=== PATIENT | female | born 1960 | race Caucasian/White ===

== ENCOUNTER → 2016-10-06 | Outpatient (CLI) | payer MEDICARE, MEDICAID ==
[~2016-10-06] VITALS: Ht 30.5 cm; Wt 0.5 kg
[~2016-10-06] MED LIST: MAGNESIUM OXIDE 400 MG TAB ONE; MAGNESIUM OXIDE 400 MG TAB PO ONE; POTASSIUM CHL 20 Meq TABLET PO ONE
[2016-10-06 13:25] VITALS: BP 124/69
[2016-10-06 15:45] VITALS: BP 132/64
== END | disposition home or self-care (01) ==
LOC: CHF HDHVI 13:45
PROVIDERS: ATTEND Internal Medicine Cardiovascular Disease
DX: I51.7 Cardiomegaly (principal); I70.0 Atherosclerosis of aorta
CPT/HCPCS: 71020; G0463

== ENCOUNTER → 2016-10-08 | Outpatient (CLI) | payer MEDICARE, MEDICAID | END | disposition home or self-care (01) | LOC: Rad HDHVI 15:08 | PROVIDERS: ATTEND Internal Medicine Cardiovascular Disease | DX: I27.2 Other secondary pulmonary hypertension (principal); R06.02 Shortness of breath | CPT/HCPCS: 93306 ==

== ENCOUNTER → 2016-10-15 | Outpatient (CLI) | payer MEDICARE, MEDICAID ==
[~2016-10-15] MED LIST changes: +ALBUTEROL SULF 2.5 MG/0.5ML(0.5%) NEB SOLN NEB ONE; +ALBUTEROL SULF 2.5 MG/0.5ML(0.5%) NEB SOLN ONE; +CYANOCOBALAMIN (B-12) 1000 MCG/1 ML VIAL IM ONE; +CYANOCOBALAMIN (B-12) 1000 MCG/1 ML VIAL ONE; +FUROSEMIDE 40 MG/4 ML VIAL IV ONE; +FUROSEMIDE 40 MG/4 ML VIAL ONE; -MAGNESIUM OXIDE 400 MG TAB ONE; -MAGNESIUM OXIDE 400 MG TAB PO ONE
[2016-10-15 14:05] VITALS: BP 123/78
[2016-10-15 14:50] VITALS: BP 131/75
[2016-10-15 16:32] LABS: Basophils # (auto) 0.1 uL; Basophils % (auto) 0.5 % (0.0-2.0); Eosinophils # (auto) 0 uL; Eosinophils % (auto) 0.3 % (0.0-7.0); Hematocrit 40.5 % (36.0-46.0); Hemoglobin 13.1 g/dL (12.2-16.2); Lymphocytes # (auto) 2.4 uL; Lymphocytes % (auto) 20.1 % (10.0-50.0); Mean Corpuscular Hemoglobin 27.1 pg (28.0-32.0); Mean Corpuscular Hgb Conc. 32.3 g/dL (32.0-36.0); Mean Corpuscular Volume 83.9 fL (80.0-100.0); Mean Platelet Volume 10.6 fL (7.4-10.4); Monocytes # (auto) 0.5 uL; Monocytes % (auto) 4.4 % (0.0-12.0); Neutrophils # (auto) 8.8 uL; Neutrophils % (auto) 74.7 % (37.0-80.0); Platelet Count (auto) 292 10^3/uL (140-450); White Blood Cell 11.8 10^3/uL (4.4-10.8)
[2016-10-15 16:39] LABS: BUN/Creatinine Ratio 18.3; Calcium 8.8 mg/dL (8.5-10.1); Magnesium 2.2 mg/dL (1.6-2.6); Potassium 3.9 mmol/L (3.5-5.1)
== END | disposition home or self-care (01) ==
LOC: CHF HDHVI 14:20
PROVIDERS: ATTEND Internal Medicine Cardiovascular Disease
DX: I10 Essential (primary) hypertension (principal); E11.9 Type 2 diabetes mellitus without complications; E83.40 Disorders of magnesium metabolism, unspecified; D64.9 Anemia, unspecified; E55.9 Vitamin D deficiency, unspecified
CPT/HCPCS: 36415; 80048; 82306; 83036; 83735; 85025; 85049; 94640; 96372; 96374; G0463

== ENCOUNTER → 2016-11-06 | Outpatient (CLI) | payer MEDICARE, MEDICAID ==
[2016-11-06 13:00] VITALS: BP 120/84
[2016-11-06] MEDS: POTASSIUM CHL 20 Meq TABLET PO ONE (13:00)
[2016-11-06] MEDS: CYANOCOBALAMIN (B-12) 1000 MCG/1 ML VIAL IM ONE (13:00)
[2016-11-06] MEDS: FUROSEMIDE 40 MG/4 ML VIAL IV ONE (13:00)
[2016-11-06 13:46] VITALS: BP 118/69
[2016-11-06] MEDS: POTASSIUM CHL 10 Meq TABLET PO ONE (13:47)
[2016-11-06] MEDS: FUROSEMIDE 40 MG/4 ML VIAL ONE (13:47)
[2016-11-06] MEDS: CYANOCOBALAMIN (B-12) 1000 MCG/1 ML VIAL ONE (13:48)
[2016-11-06 16:17] LABS: Basophils # (auto) 0 uL; Basophils % (auto) 0.7 % (0.0-2.0); DEFINITIVE VIEW TRANSMISSION; Eosinophils # (auto) 0.1 uL; Eosinophils % (auto) 1.4 % (0.0-7.0); Hematocrit 37.1 % (36.0-46.0); Hemoglobin 11.5 g/dL (12.2-16.2); Lymphocytes # (auto) 1.9 uL; Lymphocytes % (auto) 27.1 % (10.0-50.0); Mean Corpuscular Hemoglobin 26.1 pg (28.0-32.0); Mean Corpuscular Hgb Conc. 31.1 g/dL (32.0-36.0); Mean Platelet Volume 11.9 fL (7.4-10.4); Monocytes # (auto) 0.3 uL; Monocytes % (auto) 4.3 % (0.0-12.0); Neutrophils # (auto) 4.6 uL; Neutrophils % (auto) 66.5 % (37.0-80.0); Platelet Count (auto) 315 10^3/uL (140-450); Red Cell Distribution Width 16.1 % (11.6-16.0); SUSPECT VIEW TRANSMISSION
[2016-11-06 16:42] LABS: Albumin 3.4 g/dL (3.4-5.0); BUN/Creatinine Ratio 16.3; Calcium 8.4 mg/dL (8.5-10.1); Magnesium 2.2 mg/dL (1.6-2.6); Potassium 3.7 mmol/L (3.5-5.1)
[2016-11-06 16:57] LABS: Bilirubin, Total 0.2 mg/dL (0.2-1.0); Total Protein 6.6 g/dL (6.4-8.2)
== END | disposition home or self-care (01) ==
LOC: CHF HDHVI 12:56
PROVIDERS: ATTEND Internal Medicine Cardiovascular Disease
DX: I10 Essential (primary) hypertension (principal); D64.9 Anemia, unspecified; E83.40 Disorders of magnesium metabolism, unspecified
CPT/HCPCS: 36415; 80053; 83735; 85025; 93701; 96365; 96372; G0463

== ENCOUNTER → 2016-11-13 | Outpatient (CLI) | payer MEDICARE, MEDICAID ==
[2016-11-13 11:00] VITALS: BP 125/74
[2016-11-13 13:30] VITALS: BP 137/71
== END | disposition home or self-care (01) ==
LOC: Rad HDHVI 11:41
PROVIDERS: ATTEND Internal Medicine Cardiovascular Disease
DX: I27.0 Primary pulmonary hypertension (principal); M81.0 Age-related osteoporosis without current pathological fracture
CPT/HCPCS: 77078; 96372; G0463

== ENCOUNTER → 2017-01-07 | Outpatient (CLI) | payer MEDICARE, MEDICAID ==
[~2017-01-07] MED LIST changes: -ALBUTEROL SULF 2.5 MG/0.5ML(0.5%) NEB SOLN NEB ONE; -ALBUTEROL SULF 2.5 MG/0.5ML(0.5%) NEB SOLN ONE; -FUROSEMIDE 40 MG/4 ML VIAL IV ONE; -FUROSEMIDE 40 MG/4 ML VIAL ONE; -POTASSIUM CHL 20 Meq TABLET PO ONE
[2017-01-07 13:20] VITALS: BP 122/70
[2017-01-07 16:35] LABS: Basophils # (auto) 0 uL; Basophils % (auto) 0.6 % (0.0-2.0); Eosinophils # (auto) 0.1 uL; Eosinophils % (auto) 1.7 % (0.0-7.0); Hematocrit 37.3 % (36.0-46.0); Hemoglobin 12.3 g/dL (12.2-16.2); Lymphocytes % (auto) 27.7 % (10.0-50.0); Mean Corpuscular Hemoglobin 27.7 pg (28.0-32.0); Mean Corpuscular Hgb Conc. 33.1 g/dL (32.0-36.0); Mean Corpuscular Volume 83.7 fL (80.0-100.0); Mean Platelet Volume 11.2 fL (7.4-10.4); Monocytes # (auto) 0.3 uL; Neutrophils # (auto) 4.7 uL; Platelet Count (auto) 272 10^3/uL (140-450); Red Cell Distribution Width 16.7 % (11.6-16.0); White Blood Cell 7.2 10^3/uL (4.4-10.8)
[2017-01-07 16:47] LABS: BUN/Creatinine Ratio 14.5; Calcium 8.4 mg/dL (8.5-10.1); Potassium 3.4 mmol/L (3.5-5.1)
== END | disposition home or self-care (01) ==
LOC: CHF HDHVI 13:27
PROVIDERS: ATTEND Internal Medicine Cardiovascular Disease
DX: I10 Essential (primary) hypertension (principal); E11.9 Type 2 diabetes mellitus without complications; D64.9 Anemia, unspecified
CPT/HCPCS: 36415; 80048; 83036; 85025; 96372; G0463

== ENCOUNTER → 2017-02-10 | Outpatient (CLI) | payer MEDICARE, MEDICAID ==
[~2017-02-10] MED LIST changes: -CYANOCOBALAMIN (B-12) 1000 MCG/1 ML VIAL IM ONE
[2017-02-10 16:38] LABS: Potassium 3.4 mmol/L (3.5-5.1)
== END | disposition home or self-care (01) ==
LOC: CHF HDHVI 12:35
PROVIDERS: ATTEND Internal Medicine Cardiovascular Disease
DX: R94.4 Abnormal results of kidney function studies (principal); I10 Essential (primary) hypertension
CPT/HCPCS: 36415; 82565; 84132; 84520

== ENCOUNTER → 2017-03-18 | Outpatient (CLI) | payer MEDICARE, MEDICAID ==
[~2017-03-18] MED LIST changes: +CYANOCOBALAMIN (B-12) 1000 MCG/1 ML VIAL IM ONE; +POTASSIUM CHL 20 Meq TABLET PO ONE
[2017-03-18 12:35] VITALS: BP 116/68
[2017-03-18 13:40] VITALS: BP 108/66
[2017-03-18 16:27] LABS: Calcium 8.1 mg/dL (8.5-10.1); Magnesium 1.7 mg/dL (1.6-2.6); Potassium 3.4 mmol/L (3.5-5.1)
[2017-03-18 16:29] LABS: Basophils # (auto) 0 uL; Basophils % (auto) 0.7 % (0.0-2.0); CONDITION AutoValidated; Eosinophils # (auto) 0.1 uL; Hematocrit 35.4 % (36.0-46.0); Hemoglobin 11.8 g/dL (12.2-16.2); Lymphocytes # (auto) 1.7 uL; Lymphocytes % (auto) 27.4 % (10.0-50.0); Mean Corpuscular Hemoglobin 28.1 pg (28.0-32.0); Mean Corpuscular Hgb Conc. 33.4 g/dL (32.0-36.0); Mean Corpuscular Volume 84.2 fL (80.0-100.0); Monocytes # (auto) 0.3 uL; Monocytes % (auto) 4.3 % (0.0-12.0); Neutrophils # (auto) 4.1 uL; Neutrophils % (auto) 66.6 % (37.0-80.0); Platelet Count (auto) 248 10^3/uL (140-450); Red Cell Distribution Width 15.2 % (11.6-16.0); White Blood Cell 6.1 10^3/uL (4.4-10.8)
== END | disposition home or self-care (01) ==
LOC: CHF HDHVI 12:31
PROVIDERS: ATTEND Internal Medicine Cardiovascular Disease
DX: I10 Essential (primary) hypertension (principal); D64.9 Anemia, unspecified; E83.42 Hypomagnesemia
CPT/HCPCS: 36415; 80048; 83735; 85025; 96372; G0463

== ENCOUNTER → 2017-04-05 | Outpatient (CLI) | payer MEDICARE, MEDICAID ==
[~2017-04-05] MED LIST changes: -POTASSIUM CHL 20 Meq TABLET PO ONE
[2017-04-05 13:00] VITALS: BP 108/70
[2017-04-05 13:25] VITALS: BP 108/57
[2017-04-05 17:11] LABS: Basophils # (auto) 0 uL; Basophils % (auto) 0.6 % (0.0-2.0); CONDITION Y; Eosinophils # (auto) 0.1 uL; Eosinophils % (auto) 0.9 % (0.0-7.0); Hematocrit 37.8 % (36.0-46.0); Hemoglobin 12.7 g/dL (12.2-16.2); Lymphocytes # (auto) 1.6 uL; Lymphocytes % (auto) 25.6 % (10.0-50.0); Mean Corpuscular Hemoglobin 28.8 pg (28.0-32.0); Mean Corpuscular Hgb Conc. 33.6 g/dL (32.0-36.0); Mean Corpuscular Volume 85.5 fL (80.0-100.0); Mean Platelet Volume 11.5 fL (7.4-10.4); Monocytes # (auto) 0.2 uL; Monocytes % (auto) 3.5 % (0.0-12.0); Neutrophils # (auto) 4.3 uL; Neutrophils % (auto) 69.4 % (37.0-80.0); Platelet Count (auto) 265 10^3/uL (140-450); Red Cell Distribution Width 15.2 % (11.6-16.0); White Blood Cell 6.2 10^3/uL (4.4-10.8)
[2017-04-05 17:35] LABS: Albumin 3.7 g/dL (3.4-5.0); Alkaline Phosphatase 103 U/L (45-117); Anion Gap 11 (5-15); Aspartate Aminotransferase 12 U/L (15-37); BUN/Creatinine Ratio 20.6; Bilirubin, Direct < 0.1 mg/dL (0-0.2); Bilirubin, Total 0.3 mg/dL (0.2-1.0); Blood Urea Nitrogen 21 mg/dL (7-18); Calcium 8.7 mg/dL (8.5-10.1); Carbon Dioxide 26 mmol/L (21-32); Chloride 99 mmol/L (98-107); Cholesterol 214 mg/dL (< 200); GFR African American 72 mL/min; GFR Non-African American 59 mL/min; Glucose 264 mg/dL (74-106); HDL Cholesterol 41 mg/dL (40-59); LDL Cholesterol 142 mg/dL (< 100); Magnesium 2.1 mg/dL (1.6-2.6); Potassium 3.6 mmol/L (3.5-5.1); Sodium 136 mmol/L (136-145); Total Protein 6.9 g/dL (6.4-8.2); Triglycerides 203 mg/dL (< 150)
== END | disposition home or self-care (01) ==
LOC: CHF HDHVI 12:14
PROVIDERS: ATTEND Internal Medicine Cardiovascular Disease
DX: I10 Essential (primary) hypertension (principal); E11.9 Type 2 diabetes mellitus without complications; K21.9 Gastro-esophageal reflux disease without esophagitis; J45.909 Unspecified asthma, uncomplicated; E55.9 Vitamin D deficiency, unspecified; D64.9 Anemia, unspecified; R06.02 Shortness of breath
CPT/HCPCS: 36415; 80048; 80061; 80076; 82306; 83036; 83735; 85025; 96372; G0463; J3420

== ENCOUNTER → 2017-04-29 | Outpatient (CLI) | payer MEDICARE, MEDICAID ==
[2017-04-29 15:30] VITALS: BP 107/68
[2017-04-29 15:43] VITALS: BP 107/68
[2017-04-29 16:36] LABS: BUN/Creatinine Ratio 11.7; Calcium 8.5 mg/dL (8.5-10.1); Potassium 3.8 mmol/L (3.5-5.1)
[2017-04-29 16:37] LABS: Magnesium 2.2 mg/dL (1.6-2.6); Phosphorus 3.8 mg/dL (2.5-4.90)
== END | disposition home or self-care (01) ==
LOC: CHF HDHVI 14:37
PROVIDERS: ATTEND Internal Medicine Cardiovascular Disease
DX: I27.0 Primary pulmonary hypertension (principal); D64.9 Anemia, unspecified; E11.9 Type 2 diabetes mellitus without complications; B37.89 Other sites of candidiasis; E83.42 Hypomagnesemia; R89.9 Unspecified abnormal finding in specimens from other organs, systems and tissues
CPT/HCPCS: 36415; 80048; 83036; 83735; 84100; 87205; 96372; G0463; J3420

== ENCOUNTER → 2017-05-25 | Outpatient (CLI) | payer MEDICARE, MEDICAID | END | disposition home or self-care (01) | LOC: LAB 11:07 | PROVIDERS: ATTEND Internal Medicine Cardiovascular Disease | DX: E11.9 Type 2 diabetes mellitus without complications (principal) | CPT/HCPCS: 36415; 83036 ==

== ENCOUNTER → 2017-07-27 | Outpatient (CLI) | payer MEDICARE, MEDICAID ==
[2017-07-27 11:30] VITALS: BP 110/67
[2017-07-27 12:12] VITALS: BP 126/63
[2017-07-27 17:04] LABS: BUN/Creatinine Ratio 17.2; Calcium 8.7 mg/dL (8.5-10.1); Potassium 3.7 mmol/L (3.5-5.1)
== END | disposition home or self-care (01) ==
LOC: CHF HDHVI 11:37
PROVIDERS: ATTEND Internal Medicine Cardiovascular Disease
DX: I10 Essential (primary) hypertension (principal); E11.9 Type 2 diabetes mellitus without complications; E55.9 Vitamin D deficiency, unspecified
CPT/HCPCS: 36415; 80048; 82306; 83036; 83735; G0463

== ENCOUNTER → 2017-10-07 | Outpatient (CLI) | payer MEDICARE, MEDICAID ==
[~2017-10-07] VITALS: Ht 30.5 cm; Wt 0.5 kg
[~2017-10-07] MED LIST changes: +FUROSEMIDE 40 MG/4 ML VIAL IV ONE; +FUROSEMIDE 40 MG/4 ML VIAL ONE; +POTASSIUM CHL 10 Meq TABLET PO ONE; +POTASSIUM CHL 20 Meq TABLET PO ONE
[2017-10-07 10:55] VITALS: BP 127/70
[2017-10-07 12:25] VITALS: BP 105/69
[2017-10-07 16:44] LABS: Basophils # (auto) 0 uL; Basophils % (auto) 0.6 % (0.0-2.0); Eosinophils # (auto) 0.1 uL; Eosinophils % (auto) 1.3 % (0.0-7.0); Hematocrit 36.3 % (36.0-46.0); Lymphocytes # (auto) 1.6 uL; Lymphocytes % (auto) 22.6 % (10.0-50.0); Mean Corpuscular Hemoglobin 27.6 pg (28.0-32.0); Mean Corpuscular Hgb Conc. 32.9 g/dL (32.0-36.0); Mean Corpuscular Volume 83.7 fL (80.0-100.0); Monocytes # (auto) 0.3 uL; Monocytes % (auto) 4.2 % (0.0-12.0); Neutrophils # (auto) 5.1 uL; Neutrophils % (auto) 71.3 % (37.0-80.0); Nucleated Red Blood Cells % 0.4 %; Platelet Count (auto) 239 10^3/uL (140-450); Red Blood Cells 4.34 10^6/uL (4.0-5.20); Red Cell Distribution Width 16.1 % (11.8-14.3); White Blood Cell 7.2 10^3/uL (4.4-10.8)
[2017-10-07 16:52] LABS: BUN/Creatinine Ratio 13.5; Calcium 8.7 mg/dL (8.5-10.1); Magnesium 2.4 mg/dL (1.6-2.6); Potassium 3.8 mmol/L (3.5-5.1)
== END | disposition home or self-care (01) ==
LOC: CHF HDHVI 10:06
PROVIDERS: ATTEND Internal Medicine Cardiovascular Disease
DX: I10 Essential (primary) hypertension (principal); E11.9 Type 2 diabetes mellitus without complications; E83.42 Hypomagnesemia; D64.9 Anemia, unspecified; I27.21 Secondary pulmonary arterial hypertension; R53.83 Other fatigue; E87.70 Fluid overload, unspecified
CPT/HCPCS: 36415; 80048; 83036; 83735; 85025; 93701; 94618; 96372; 96374; G0463; J1940; J3420

== ENCOUNTER → 2017-10-29 | Outpatient (CLI) | payer MEDICARE, MEDICAID ==
[~2017-10-29] VITALS: Ht 30.5 cm; Wt 80.5 kg
[~2017-10-29] MED LIST changes: -FUROSEMIDE 40 MG/4 ML VIAL IV ONE; -FUROSEMIDE 40 MG/4 ML VIAL ONE; -POTASSIUM CHL 10 Meq TABLET PO ONE; -POTASSIUM CHL 20 Meq TABLET PO ONE
[2017-10-29 13:30] VITALS: BP 118/73
[2017-10-29 14:00] VITALS: BP 107/67
[2017-10-29 16:23] LABS: Basophils # (auto) 0 uL; Basophils % (auto) 0.5 % (0.0-2.0); Eosinophils # (auto) 0.1 uL; Eosinophils % (auto) 0.9 % (0.0-7.0); Hematocrit 37.6 % (36.0-46.0); Hemoglobin 12.5 g/dL (12.2-16.2); Lymphocytes # (auto) 1.8 uL; Lymphocytes % (auto) 21.2 % (10.0-50.0); Mean Corpuscular Hemoglobin 27.8 pg (28.0-32.0); Mean Corpuscular Hgb Conc. 33.2 g/dL (32.0-36.0); Mean Corpuscular Volume 83.9 fL (80.0-100.0); Monocytes # (auto) 0.5 uL; Monocytes % (auto) 5.6 % (0.0-12.0); Neutrophils % (auto) 71.8 % (37.0-80.0); Nucleated Red Blood Cells % 0.3 %; Platelet Count (auto) 240 10^3/uL (140-450); Red Blood Cells 4.49 10^6/uL (4.0-5.20); Red Cell Distribution Width 16.2 % (11.8-14.3); White Blood Cell 8.4 10^3/uL (4.4-10.8)
[2017-10-29 16:36] LABS: Albumin 3.6 g/dL (3.4-5.0); Calcium 8.9 mg/dL (8.5-10.1); Potassium 3.5 mmol/L (3.5-5.1)
[2017-10-29 16:38] LABS: BUN/Creatinine Ratio 18.1
[2017-10-29 16:40] LABS: Bilirubin, Total 0.3 mg/dL (0.2-1.0); Total Protein 6.8 g/dL (6.4-8.2)
== END | disposition home or self-care (01) ==
LOC: CHF HDHVI 13:31
PROVIDERS: ATTEND Internal Medicine Cardiovascular Disease
DX: I10 Essential (primary) hypertension (principal); D64.9 Anemia, unspecified; E83.42 Hypomagnesemia
CPT/HCPCS: 36415; 80053; 83735; 85025; 93701; 96372; G0463; J3420

== ENCOUNTER → 2017-12-16 | Outpatient (CLI) | payer MEDICARE, MEDICAID ==
[~2017-12-16] VITALS: Ht 33 cm; Wt 0.5 kg
[~2017-12-16] MED LIST changes: +FUROSEMIDE 20 MG/2 ML VIAL ONE; +FUROSEMIDE 40 MG/4 ML VIAL IV ONE; +FUROSEMIDE 40 MG/4 ML VIAL ONE; +POTASSIUM CHL 20 Meq TABLET PO ONE
[2017-12-16 14:10] VITALS: BP 109/72
[2017-12-16 14:40] VITALS: BP 113/64
[2017-12-16 15:58] LABS: Basophils # (auto) 0.1 uL; Eosinophils # (auto) 0.1 uL; Hematocrit 39.1 % (36.0-46.0); Hemoglobin 12.8 g/dL (12.2-16.2); Lymphocytes % (auto) 24.1 % (10.0-50.0); Mean Corpuscular Hemoglobin 28.1 pg (28.0-32.0); Mean Corpuscular Hgb Conc. 32.8 g/dL (32.0-36.0); Mean Corpuscular Volume 85.6 fL (80.0-100.0); Monocytes # (auto) 0.3 uL; Monocytes % (auto) 4.1 % (0.0-12.0); Neutrophils # (auto) 5.8 uL; Neutrophils % (auto) 69.8 % (37.0-80.0); Nucleated Red Blood Cells % 0.2 %; Platelet Count (auto) 278 10^3/uL (140-450); Red Blood Cells 4.57 10^6/uL (4.0-5.20); White Blood Cell 8.3 10^3/uL (4.4-10.8)
[2017-12-16 16:01] LABS: Albumin 3.7 g/dL (3.4-5.0); BUN/Creatinine Ratio 13.3; Calcium 8.9 mg/dL (8.5-10.1); Magnesium 1.8 mg/dL (1.6-2.6); Potassium 3.6 mmol/L (3.5-5.1)
[2017-12-16 16:04] LABS: Bilirubin, Total 0.3 mg/dL (0.2-1.0); Total Protein 7.3 g/dL (6.4-8.2)
== END | disposition home or self-care (01) ==
LOC: CHF HDHVI 14:23
PROVIDERS: ATTEND Internal Medicine Cardiovascular Disease
DX: I11.0 Hypertensive heart disease with heart failure (principal); I50.9 Heart failure, unspecified; E11.65 Type 2 diabetes mellitus with hyperglycemia; E55.9 Vitamin D deficiency, unspecified; D51.9 Vitamin B12 deficiency anemia, unspecified; E87.70 Fluid overload, unspecified; R53.83 Other fatigue; I27.21 Secondary pulmonary arterial hypertension
CPT/HCPCS: 36415; 80053; 82306; 82607; 83735; 85025; 93701; 96372; 96374; G0463; J1940; J3420

== ENCOUNTER → 2018-01-27 | Outpatient (CLI) | payer MEDICARE, MEDICAID ==
[~2018-01-27] MED LIST changes: -CYANOCOBALAMIN (B-12) 1000 MCG/1 ML VIAL IM ONE; -FUROSEMIDE 20 MG/2 ML VIAL ONE; -FUROSEMIDE 40 MG/4 ML VIAL IV ONE; -FUROSEMIDE 40 MG/4 ML VIAL ONE; +LEVOFLOXACIN 250 MG TAB ONE; +LEVOFLOXACIN 500 MG TAB ONE; +LEVOFLOXACIN 500 MG TAB PO ONE; -POTASSIUM CHL 20 Meq TABLET PO ONE
[2018-01-27 13:47] VITALS: BP 129/71
[2018-01-27 15:00] VITALS: BP 113/66
[2018-01-27 15:52] LABS: Basophils # (auto) 0.1 uL; Basophils % (auto) 0.8 % (0.0-2.0); Eosinophils # (auto) 0.1 uL; Eosinophils % (auto) 1.1 % (0.0-7.0); Hematocrit 35.6 % (36.0-46.0); Hemoglobin 11.9 g/dL (12.2-16.2); Lymphocytes # (auto) 1.9 uL; Mean Corpuscular Hemoglobin 28.2 pg (28.0-32.0); Mean Corpuscular Hgb Conc. 33.3 g/dL (32.0-36.0); Mean Corpuscular Volume 84.6 fL (80.0-100.0); Monocytes # (auto) 0.4 uL; Monocytes % (auto) 4.3 % (0.0-12.0); Neutrophils # (auto) 6.1 uL; Neutrophils % (auto) 71.8 % (37.0-80.0); Nucleated Red Blood Cells % 0.2 %; Platelet Count (auto) 252 10^3/uL (140-450); Red Blood Cells 4.21 10^6/uL (4.0-5.20); Red Cell Distribution Width 15.3 % (11.8-14.3); White Blood Cell 8.6 10^3/uL (4.4-10.8)
[2018-01-27 16:03] LABS: Albumin 3.5 g/dL (3.4-5.0); BUN/Creatinine Ratio 18.1; Calcium 8.5 mg/dL (8.5-10.1); Magnesium 1.6 mg/dL (1.6-2.6); Potassium 3.3 mmol/L (3.5-5.1)
[2018-01-27 16:06] LABS: Bilirubin, Total 0.2 mg/dL (0.2-1.0); Total Protein 6.7 g/dL (6.4-8.2)
== END | disposition home or self-care (01) ==
LOC: Rad HDHVI 13:57
PROVIDERS: ATTEND Internal Medicine Cardiovascular Disease
DX: I70.0 Atherosclerosis of aorta (principal); J98.11 Atelectasis; I27.29 Other secondary pulmonary hypertension; E11.65 Type 2 diabetes mellitus with hyperglycemia; E03.9 Hypothyroidism, unspecified; D64.9 Anemia, unspecified; I10 Essential (primary) hypertension
CPT/HCPCS: 36415; 71046; 80053; 83036; 83735; 84439; 84443; 85025; J3420

== ENCOUNTER → 2018-04-15 | Outpatient (CLI) | payer MEDICARE, MEDICAID ==
[~2018-04-15] VITALS: Ht 30.5 cm; Wt 0.5 kg
[~2018-04-15] MED LIST changes: -LEVOFLOXACIN 250 MG TAB ONE; -LEVOFLOXACIN 500 MG TAB ONE; -LEVOFLOXACIN 500 MG TAB PO ONE
[2018-04-15 14:00] VITALS: BP 110/57
[2018-04-15 15:40] VITALS: BP 112/60
[2018-04-15 15:55] LABS: Basophils # (auto) 0.1 uL; Basophils % (auto) 0.7 % (0.0-2.0); Eosinophils # (auto) 0.1 uL; Eosinophils % (auto) 0.9 % (0.0-7.0); Hematocrit 37.1 % (36.0-46.0); Hemoglobin 12.3 g/dL (12.2-16.2); Lymphocytes # (auto) 1.9 uL; Lymphocytes % (auto) 24.2 % (10.0-50.0); Mean Corpuscular Hemoglobin 28.1 pg (28.0-32.0); Mean Corpuscular Hgb Conc. 33.2 g/dL (32.0-36.0); Mean Corpuscular Volume 84.7 fL (80.0-100.0); Monocytes # (auto) 0.4 uL; Monocytes % (auto) 4.6 % (0.0-12.0); Neutrophils # (auto) 5.4 uL; Neutrophils % (auto) 69.6 % (37.0-80.0); Nucleated Red Blood Cells % 0.1 %; Platelet Count (auto) 244 10^3/uL (140-450); Red Blood Cells 4.38 10^6/uL (4.0-5.20); White Blood Cell 7.7 10^3/uL (4.4-10.8)
[2018-04-15 17:00] LABS: Albumin 3.3 g/dL (3.4-5.0); BUN/Creatinine Ratio 12.2; Bilirubin, Total 0.3 mg/dL (0.2-1.0); Magnesium 1.7 mg/dL (1.6-2.6); Potassium 3.5 mmol/L (3.5-5.1); Total Protein 6.6 g/dL (6.4-8.2)
== END | disposition home or self-care (01) ==
LOC: CHF HDHVI 14:23
PROVIDERS: ATTEND Internal Medicine Cardiovascular Disease
DX: E83.40 Disorders of magnesium metabolism, unspecified (principal); I10 Essential (primary) hypertension; D64.9 Anemia, unspecified; E11.9 Type 2 diabetes mellitus without complications; I27.21 Secondary pulmonary arterial hypertension; R06.09 Other forms of dyspnea; I25.10 Atherosclerotic heart disease of native coronary artery without angina pectoris
CPT/HCPCS: 36415; 80053; 83036; 83735; 85025; G0463; J3420; 93701

== ENCOUNTER → 2018-05-11 | Outpatient (CLI) | payer MEDICARE, MEDICAID ==
[~2018-05-11] VITALS: Ht 160 cm; Wt 80.7 kg
[~2018-05-11] MED LIST changes: +ADENOSINE 68 MG in GIVE UN-DILUTED 0 ML IV ONE; +ADENOSINE 90 MG/30 ML INJ IV ONE; +ALBUTEROL SULF 2.5 MG/0.5ML(0.5%) NEB SOLN ONE; -CYANOCOBALAMIN (B-12) 1000 MCG/1 ML VIAL ONE
== END | disposition home or self-care (01) ==
LOC: Rad HDHVI 13:41
PROVIDERS: ATTEND Internal Medicine Cardiovascular Disease
DX: E11.22 Type 2 diabetes mellitus with diabetic chronic kidney disease (principal); N18.3 Chronic kidney disease, stage 3 (moderate); E11.40 Type 2 diabetes mellitus with diabetic neuropathy, unspecified; E11.65 Type 2 diabetes mellitus with hyperglycemia; E70.0 Classical phenylketonuria; R00.2 Palpitations
CPT/HCPCS: 78452; 93005; 96374; 96375; A9500; J0153

== ENCOUNTER → 2018-05-16 | Outpatient (CLI) | payer MEDICARE, MEDICAID | END | disposition home or self-care (01) | LOC: Rad HDHVI 13:09 | PROVIDERS: ATTEND Internal Medicine Cardiovascular Disease | DX: I42.0 Dilated cardiomyopathy (principal); I73.9 Peripheral vascular disease, unspecified; I12.9 Hypertensive chronic kidney disease with stage 1 through stage 4 chronic kidney disease, or unspecified chronic kidney disease; N18.3 Chronic kidney disease, stage 3 (moderate) | CPT/HCPCS: 93306 ==

== ENCOUNTER → 2018-06-01 | Outpatient (CLI) | payer MEDICARE, MEDICAID ==
[2018-06-01 15:10] VITALS: BP 122/72
[2018-06-01 16:10] VITALS: BP 102/72
== END | disposition home or self-care (01) ==
LOC: Rad HDHVI 15:38
PROVIDERS: ATTEND Internal Medicine Cardiovascular Disease
DX: J44.9 Chronic obstructive pulmonary disease, unspecified (principal); I27.21 Secondary pulmonary arterial hypertension; I11.0 Hypertensive heart disease with heart failure; I50.9 Heart failure, unspecified; I25.10 Atherosclerotic heart disease of native coronary artery without angina pectoris; E11.9 Type 2 diabetes mellitus without complications
CPT/HCPCS: 93005; 93701; G0463

== ENCOUNTER → 2018-07-15 | Outpatient (CLI) | payer MEDICARE, MEDICAID ==
[2018-07-15 16:03] LABS: Basophils # (auto) 0 uL; Basophils % (auto) 0.6 % (0.0-2.0); Eosinophils # (auto) 0.1 uL; Hematocrit 36.9 % (36.0-46.0); Hemoglobin 12.3 g/dL (12.2-16.2); Lymphocytes # (auto) 1.6 uL; Lymphocytes % (auto) 22.7 % (10.0-50.0); Mean Corpuscular Hemoglobin 28.4 pg (28.0-32.0); Mean Corpuscular Hgb Conc. 33.3 g/dL (32.0-36.0); Mean Corpuscular Volume 85.2 fL (80.0-100.0); Monocytes # (auto) 0.3 uL; Monocytes % (auto) 4.1 % (0.0-12.0); Neutrophils # (auto) 5.1 uL; Neutrophils % (auto) 71.6 % (37.0-80.0); Nucleated Red Blood Cells % 0.1 %; Platelet Count (auto) 244 10^3/uL (140-450); Red Blood Cells 4.33 10^6/uL (4.0-5.20); Red Cell Distribution Width 15.6 % (11.8-14.3); White Blood Cell 7.2 10^3/uL (4.4-10.8)
[2018-07-15 16:10] LABS: Potassium 3.3 mmol/L (3.5-5.1)
[2018-07-15 16:11] LABS: Albumin 3.4 g/dL (3.4-5.0); BUN/Creatinine Ratio 10.6; Calcium 7.5 mg/dL (8.5-10.1); Magnesium 1.6 mg/dL (1.6-2.6)
[2018-07-15 16:28] LABS: Bilirubin, Total 0.3 mg/dL (0.2-1.0); Total Protein 6.8 g/dL (6.4-8.2)
== END | disposition home or self-care (01) ==
LOC: LAB 13:58
PROVIDERS: ATTEND Internal Medicine Cardiovascular Disease
DX: D64.9 Anemia, unspecified (principal); I10 Essential (primary) hypertension; E11.9 Type 2 diabetes mellitus without complications; E83.40 Disorders of magnesium metabolism, unspecified
CPT/HCPCS: 36415; 80053; 83036; 83735; 85025

== ENCOUNTER → 2018-08-03 | Outpatient (CLI) | payer MEDICARE, MEDICAID ==
[~2018-08-03] VITALS: Ht 30.5 cm; Wt 80.9 kg
[~2018-08-03] MED LIST changes: -ADENOSINE 68 MG in GIVE UN-DILUTED 0 ML IV ONE; -ADENOSINE 90 MG/30 ML INJ IV ONE; -ALBUTEROL SULF 2.5 MG/0.5ML(0.5%) NEB SOLN ONE; +CYANOCOBALAMIN (B-12) 1000 MCG/1 ML VIAL IM ONE; +CYANOCOBALAMIN (B-12) 1000 MCG/1 ML VIAL ONE; +POTASSIUM CHL 10 Meq TABLET PO ONE; +POTASSIUM CHL 20 Meq TABLET PO ONE
[2018-08-03 12:00] VITALS: BP 109/65
[2018-08-03 13:00] VITALS: BP 109/65
== END | disposition home or self-care (01) ==
LOC: CHF HDHVI 12:06
PROVIDERS: ATTEND Internal Medicine Cardiovascular Disease
DX: D51.9 Vitamin B12 deficiency anemia, unspecified (principal); I27.21 Secondary pulmonary arterial hypertension; J44.9 Chronic obstructive pulmonary disease, unspecified; I13.0 Hypertensive heart and chronic kidney disease with heart failure and stage 1 through stage 4 chronic kidney disease, or unspecified chronic kidney disease; E11.22 Type 2 diabetes mellitus with diabetic chronic kidney disease; E11.40 Type 2 diabetes mellitus with diabetic neuropathy, unspecified; E11.51 Type 2 diabetes mellitus with diabetic peripheral angiopathy without gangrene; N18.3 Chronic kidney disease, stage 3 (moderate); I50.9 Heart failure, unspecified; I25.10 Atherosclerotic heart disease of native coronary artery without angina pectoris; I42.0 Dilated cardiomyopathy
CPT/HCPCS: 82962; 93701; 96372; G0463; J3420

== ENCOUNTER → 2018-10-27 | Outpatient (CLI) | payer MEDICARE, MEDICAID ==
[~2018-10-27] MED LIST changes: -POTASSIUM CHL 10 Meq TABLET PO ONE; -POTASSIUM CHL 20 Meq TABLET PO ONE
[2018-10-27 13:45] VITALS: BP 118/75
--- NOTE | 2018-10-27 13:45 | NUR ---
CHF PT TO CHF CLINIC FOR MD RUSHING ORDERED LABS, CARDIODYNAMICS, 6MW AND VIT B 12 INJECTION FOR PAH REEVAL. PT CONTINUES TO SMOKE. STATES COUGH STILL HERE EVEN AFTER A DOSE OF STEROIDS THAT ENDED LAST WEEK. SMOKING CESSATION TAUGHT . PT STATED "THAT MAKES ME ANGRY , I DON'T WANT TO TALK ABOUT IT " PT HAS FOLLOW UP WITH DR. RUSHING NEXT WEEK.
[2018-10-27 14:45] VITALS: BP 112/71
--- NOTE | 2018-10-27 14:45 | NUR ---
CHF Discharge Instructions See e-MAR for any mediations given with this visit. VIT B 12 1000MCG IM R DELTOID. Patient education given on disease process. Patient verbalized understanding. Previous labs reviewed. Patient discharged in stable condition with after care instructions and follow up appointment.
[2018-10-27 16:32] LABS: Basophils # (auto) 0.1 uL; Basophils % (auto) 0.7 % (0.0-2.0); Eosinophils # (auto) 0.1 uL; Eosinophils % (auto) 0.9 % (0.0-7.0); Hematocrit 37.8 % (36.0-46.0); Hemoglobin 12.5 g/dL (12.2-16.2); Lymphocytes # (auto) 1.9 uL; Lymphocytes % (auto) 23.1 % (10.0-50.0); Mean Corpuscular Hemoglobin 27.5 pg (28.0-32.0); Mean Corpuscular Volume 83.3 fL (80.0-100.0); Monocytes # (auto) 0.4 uL; Monocytes % (auto) 4.4 % (0.0-12.0); Neutrophils # (auto) 5.8 uL; Neutrophils % (auto) 70.9 % (37.0-80.0); Nucleated Red Blood Cells % 0.1 %; Platelet Count (auto) 250 10^3/uL (140-450); Red Blood Cells 4.54 10^6/uL (4.0-5.20); Red Cell Distribution Width 15.5 % (11.8-14.3); White Blood Cell 8.2 10^3/uL (4.4-10.8)
[2018-10-27 16:45] LABS: Anion Gap 7 (5-15); BUN/Creatinine Ratio 13.1; Blood Urea Nitrogen 14 mg/dL (7-18); Calcium 8.5 mg/dL (8.5-10.1); Carbon Dioxide 27 mmol/L (21-32); Chloride 104 mmol/L (98-107); GFR Non-African American 56 mL/min; Glucose 184 mg/dL (74-106); Magnesium 1.6 mg/dL (1.6-2.6); Potassium 3.7 mmol/L (3.5-5.1); Sodium 138 mmol/L (136-145)
[2018-10-27 16:54] LABS: GFR African American > 60 mL/min
== END | disposition home or self-care (01) ==
LOC: CHF HDHVI 13:49
PROVIDERS: ATTEND Internal Medicine Cardiovascular Disease
DX: I27.21 Secondary pulmonary arterial hypertension (principal); I25.10 Atherosclerotic heart disease of native coronary artery without angina pectoris; J44.9 Chronic obstructive pulmonary disease, unspecified; D64.9 Anemia, unspecified; E55.9 Vitamin D deficiency, unspecified; I13.0 Hypertensive heart and chronic kidney disease with heart failure and stage 1 through stage 4 chronic kidney disease, or unspecified chronic kidney disease; E11.22 Type 2 diabetes mellitus with diabetic chronic kidney disease; N18.3 Chronic kidney disease, stage 3 (moderate); I50.9 Heart failure, unspecified; I42.9 Cardiomyopathy, unspecified; I73.9 Peripheral vascular disease, unspecified; I70.0 Atherosclerosis of aorta; E11.40 Type 2 diabetes mellitus with diabetic neuropathy, unspecified; E11.51 Type 2 diabetes mellitus with diabetic peripheral angiopathy without gangrene; E03.9 Hypothyroidism, unspecified; E78.00 Pure hypercholesterolemia, unspecified; K21.9 Gastro-esophageal reflux disease without esophagitis; M81.0 Age-related osteoporosis without current pathological fracture; Z79.899 Other long term (current) drug therapy
CPT/HCPCS: 36415; 80048; 82306; 83036; 83735; 85025; 93701; 94618; 96372; G0463; J3420

== ENCOUNTER → 2019-01-31 | Outpatient (CLI) | payer MEDICARE, MEDICAID ==
[~2019-01-31] MED LIST changes: -CYANOCOBALAMIN (B-12) 1000 MCG/1 ML VIAL IM ONE; +CYANOCOBALAMIN (B-12) 1000 MCG/1 ML VIAL SUBCUT ONE
--- NOTE | 2019-01-31 14:15 | NUR ---
IN TO CLINIC FOR PAH FOLLOWUP. NOTED TO HAVE DYSPNEA WITH ANY ACTIVITY, IMPROVED AT REST. VS WNL. PT REPORT RIGHT LEG PAIN EXTENDING FROM HIP TO RIGHT KNEE, EXACERBATED BY ACTIVITY. S/P FALL. LABS DRAWN AND SENT. XRAYS DONE FOR RIGHT LEG AND RIGHT HIP. TOLERATED WELL. CARDIODYNAMICS AND 6 MWT DONE AND REVIEWED. Discharge Instructions See e-MAR for any mediations given with this visit. Patient education given on disease process. Patient verbalized understanding. Previous labs reviewed. Patient discharged in stable condition with after care instructions MEDICATION ADMINISTRATION VIT B12 1000 MCG IM 1412 TO LEFT DELTOID
[2019-01-31 16:11] LABS: Basophils # (auto) 0.1 uL; Basophils % (auto) 0.7 % (0.0-2.0); Eosinophils # (auto) 0.1 uL; Eosinophils % (auto) 0.7 % (0.0-7.0); Hematocrit 37.5 % (36.0-46.0); Hemoglobin 12.3 g/dL (12.2-16.2); Lymphocytes % (auto) 25.9 % (10.0-50.0); Mean Corpuscular Hemoglobin 27.2 pg (28.0-32.0); Mean Corpuscular Hgb Conc. 32.7 g/dL (32.0-36.0); Mean Corpuscular Volume 83.1 fL (80.0-100.0); Monocytes # (auto) 0.3 uL; Neutrophils # (auto) 5.3 uL; Neutrophils % (auto) 68.7 % (37.0-80.0); Nucleated Red Blood Cells % 0.2 %; Platelet Count (auto) 259 10^3/uL (140-450); Red Blood Cells 4.52 10^6/uL (4.0-5.20); White Blood Cell 7.7 10^3/uL (4.4-10.8)
[2019-01-31 16:28] LABS: Potassium 3.7 mmol/L (3.5-5.1)
[2019-01-31 16:38] LABS: Albumin 3.5 g/dL (3.4-5.0); BUN/Creatinine Ratio 13.3; Bilirubin, Total 0.3 mg/dL (0.2-1.0); Calcium 8.5 mg/dL (8.5-10.1); Magnesium 1.6 mg/dL (1.6-2.6); Total Protein 6.8 g/dL (6.4-8.2)
== END | disposition home or self-care (01) ==
LOC: CHF HDHVI 13:03
PROVIDERS: ATTEND Internal Medicine Cardiovascular Disease
DX: M16.0 Bilateral primary osteoarthritis of hip (principal); M17.11 Unilateral primary osteoarthritis, right knee; D64.9 Anemia, unspecified; D51.9 Vitamin B12 deficiency anemia, unspecified; I10 Essential (primary) hypertension; E11.65 Type 2 diabetes mellitus with hyperglycemia; E83.40 Disorders of magnesium metabolism, unspecified; Z91.81 History of falling
CPT/HCPCS: 36415; 73502; 73552; 73562; 80053; 82607; 83036; 83735; 85025; 93701; 94618; 96372; G0463; J3420

== ENCOUNTER → 2019-04-28 | Outpatient (CLI) | payer MEDICARE, MEDICAID ==
[~2019-04-28] MED LIST changes: +CYANOCOBALAMIN (B-12) 1000 MCG/1 ML VIAL IM ONE; -CYANOCOBALAMIN (B-12) 1000 MCG/1 ML VIAL SUBCUT ONE
[2019-04-28 14:40] VITALS: BP 147/63
--- NOTE | 2019-04-28 14:42 | NUR ---
CHF FOLLOWUP PAH. PT REPORTS FATIGUE AND SOB WITH ACTIVITY. CARDIODYNAMICS AND 6 MWT DONE AND REVIEWED. FOLLOWUP ON WEDNESDAY FOR ECHOCARDIOGRAM ON 05/01/19. MEDICATION ADMINISTRATION VIT B12 1000 MCG IM TO LEFT DELTOID AT 1442
[2019-04-28 15:40] VITALS: BP 148/64
[2019-04-28 16:17] LABS: Basophils # (auto) 0.1 uL; Basophils % (auto) 0.7 % (0.0-2.0); Eosinophils # (auto) 0.1 uL; Eosinophils % (auto) 1.2 % (0.0-7.0); Hematocrit 33.3 % (36.0-46.0); Hemoglobin 11.3 g/dL (12.2-16.2); Lymphocytes # (auto) 1.9 uL; Lymphocytes % (auto) 21.4 % (10.0-50.0); Mean Corpuscular Hemoglobin 28.5 pg (28.0-32.0); Mean Corpuscular Hgb Conc. 33.9 g/dL (32.0-36.0); Monocytes # (auto) 0.3 uL; Monocytes % (auto) 3.5 % (0.0-12.0); Neutrophils # (auto) 6.4 uL; Neutrophils % (auto) 73.2 % (37.0-80.0); Platelet Count (auto) 269 10^3/uL (140-450); Red Blood Cells 3.96 10^6/uL (4.0-5.20); Red Cell Distribution Width 16.1 % (11.8-14.3); White Blood Cell 8.7 10^3/uL (4.4-10.8)
[2019-04-28 16:18] LABS: Albumin 3.2 g/dL (3.4-5.0); Calcium 7.2 mg/dL (8.5-10.1)
[2019-04-28 16:22] LABS: BUN/Creatinine Ratio 12.3; Bilirubin, Total 0.3 mg/dL (0.2-1.0); Total Protein 6.4 g/dL (6.4-8.2)
== END | disposition home or self-care (01) ==
LOC: CHF HDHVI 13:58
PROVIDERS: ATTEND Internal Medicine Cardiovascular Disease
DX: I27.21 Secondary pulmonary arterial hypertension (principal); I25.10 Atherosclerotic heart disease of native coronary artery without angina pectoris; D51.9 Vitamin B12 deficiency anemia, unspecified; E11.40 Type 2 diabetes mellitus with diabetic neuropathy, unspecified; K90.9 Intestinal malabsorption, unspecified; E83.40 Disorders of magnesium metabolism, unspecified; R53.83 Other fatigue; R06.00 Dyspnea, unspecified; E78.00 Pure hypercholesterolemia, unspecified
CPT/HCPCS: 36415; 80053; 82306; 82607; 83036; 83735; 85025; 93701; 94618; 96372; G0463; J3420

== ENCOUNTER → 2019-05-01 | Outpatient (CLI) | payer MEDICARE, MEDICAID ==
[~2019-05-01] MED LIST changes: -CYANOCOBALAMIN (B-12) 1000 MCG/1 ML VIAL IM ONE; -CYANOCOBALAMIN (B-12) 1000 MCG/1 ML VIAL ONE; +MAGNESIUM OXIDE 400 MG TAB ONE; +MAGNESIUM OXIDE 400 MG TAB PO ONE; +MAGNESIUM OXIDE 400 MG TAB PO SCH
[2019-05-01 13:00] VITALS: BP 99/60
--- NOTE | 2019-05-01 13:50 | NUR ---
IN FOR PAH FOLLOWUP FOR LAB RESULTS. LAB RESULTS REVIEWED AND PT VERBALIZED UNDERSTANDING. GAVE WRITTEN AND VERBAL EDUCATION REGARDING DIABETES MANAGEMENT AND VITAMIN D LEVEL AND ELECTROLYTE REPLACEMENT. DISCHARGED IN NO DISTRESS TO HAVE ECHO DONE.
[2019-05-01 16:09] LABS: Cholesterol 208 mg/dL (< 200)
[2019-05-01 16:13] LABS: HDL Cholesterol 45 mg/dL (40-59); LDL Cholesterol 140 mg/dL (< 100); Triglycerides 170 mg/dL (< 150)
== END | disposition home or self-care (01) ==
LOC: Rad HDHVI 13:27
PROVIDERS: ATTEND Internal Medicine Cardiovascular Disease
DX: I31.3 Pericardial effusion (noninflammatory) (principal); E78.5 Hyperlipidemia, unspecified; R06.02 Shortness of breath; I27.0 Primary pulmonary hypertension; R07.89 Other chest pain; E11.9 Type 2 diabetes mellitus without complications; E83.42 Hypomagnesemia
CPT/HCPCS: 36415; 71046; 80061; 93306; G0463

== ENCOUNTER → 2019-08-04 | Outpatient (CLI) | payer MEDICARE, MEDICAID ==
[~2019-08-04] VITALS: Ht 33 cm; Wt 79.9 kg
[~2019-08-04] MED LIST changes: +CYANOCOBALAMIN (B-12) 1000 MCG/1 ML VIAL IM ONE; +CYANOCOBALAMIN (B-12) 1000 MCG/1 ML VIAL ONE; -MAGNESIUM OXIDE 400 MG TAB PO SCH; +POTASSIUM CHL 10 Meq TABLET PO ONE
[2019-08-04 13:15] VITALS: BP 115/71
[2019-08-04 14:10] VITALS: BP 122/64
--- NOTE | 2019-08-04 14:10 | NUR ---
CHF Clinic Discharge Instructions See e-MAR for any mediations given with this visit. Patient education given on disease process. Patient verbalized understanding. Previous labs reviewed. Patient discharged in stable condition with after care instructions and follow up appointment. Note Cardiodynamics performed by Mirian MOSCOSO and reviewed with patient by Samantha TRIPLETT. 6MWT patient declined 60 meters Potassium PO admin by Samantha TRIPLETT. Mag Ox PO admin by Samantha TRIPLETT. B12 IM L deltoid admin by Betsy MOSCOSO.
[2019-08-04 15:51] LABS: Basophils # (auto) 0 uL; Basophils % (auto) 0.6 % (0.0-2.0); Eosinophils # (auto) 0.1 uL; Hematocrit 38.2 % (36.0-46.0); Hemoglobin 12.8 g/dL (12.2-16.2); Lymphocytes # (auto) 1.7 uL; Lymphocytes % (auto) 22.7 % (10.0-50.0); Mean Corpuscular Hgb Conc. 33.7 g/dL (32.0-36.0); Mean Corpuscular Volume 83.1 fL (80.0-100.0); Monocytes # (auto) 0.3 uL; Monocytes % (auto) 3.4 % (0.0-12.0); Neutrophils # (auto) 5.5 uL; Neutrophils % (auto) 72.3 % (37.0-80.0); Platelet Count (auto) 293 10^3/uL (140-450); Red Blood Cells 4.59 10^6/uL (4.0-5.20); Red Cell Distribution Width 15.8 % (11.8-14.3); White Blood Cell 7.6 10^3/uL (4.4-10.8)
[2019-08-04 15:59] LABS: Albumin 3.6 g/dL (3.4-5.0); Calcium 8.4 mg/dL (8.5-10.1); Magnesium 1.7 mg/dL (1.6-2.6); Potassium 3.9 mmol/L (3.5-5.1)
[2019-08-04 16:04] LABS: BUN/Creatinine Ratio 16.5; Bilirubin, Total 0.5 mg/dL (0.2-1.0); Total Protein 7.3 g/dL (6.4-8.2)
== END | disposition home or self-care (01) ==
LOC: CHF HDHVI 13:22
PROVIDERS: ATTEND Internal Medicine Cardiovascular Disease
DX: I27.21 Secondary pulmonary arterial hypertension (principal); E11.65 Type 2 diabetes mellitus with hyperglycemia; D64.9 Anemia, unspecified; E83.40 Disorders of magnesium metabolism, unspecified; E83.42 Hypomagnesemia; E87.6 Hypokalemia; R53.83 Other fatigue; R06.02 Shortness of breath
CPT/HCPCS: 36415; 80053; 83036; 83735; 85025; 93701; 94618; 96372; G0463; J3420

== ENCOUNTER → 2019-09-20 | Outpatient (CLI) | payer MEDICARE, MEDICAID ==
[2019-09-20 14:41] VITALS: BP 109/68
[2019-09-20 15:00] VITALS: BP 109/68
--- NOTE | 2019-09-20 15:00 | NUR ---
Discharge Instructions See e-MAR for any mediations given with this visit. Patient education given on disease process. Patient verbalized understanding. Previous labs reviewed. Patient discharged in stable condition with after care instructions and follow up appointment. LABS DRAWN CMP,BNP,MG CARDIODYNAMICS COMPLETED BY JEVON TRIPLETT REVIEWED WITH STEPHEN TRIPLETT PT SHOWED IMPROVEMENT CURRENTLY ON ADEMPAS 2.5 MG TID OPSUMIT 10 MG Q DAY
[2019-09-20 16:14] LABS: Albumin 3.5 g/dL (3.4-5.0); Calcium 8.3 mg/dL (8.5-10.1); Magnesium 1.4 mg/dL (1.6-2.6); Potassium 3.7 mmol/L (3.5-5.1)
[2019-09-20 16:16] LABS: Bilirubin, Total 0.4 mg/dL (0.2-1.0); Total Protein 6.9 g/dL (6.4-8.2)
== END | disposition home or self-care (01) ==
LOC: CHF HDHVI 15:06
PROVIDERS: ATTEND Internal Medicine Cardiovascular Disease
DX: I50.9 Heart failure, unspecified (principal)
CPT/HCPCS: 36415; 80053; 83735; 83880; 93701; G0463

== ENCOUNTER → 2019-12-05 | Outpatient (CLI) | payer MEDICARE, MEDICAID ==
[~2019-12-05] MED LIST changes: -POTASSIUM CHL 10 Meq TABLET PO ONE
[2019-12-05 12:47] VITALS: BP 118/69
--- NOTE | 2019-12-05 12:47 | NUR ---
CHF PT ARRIVED TO THE CHF CLINIC FOR MONTHLY PAH FOLLOW UP HAS NOT BEEN SEEN HERE SINCE 09/20/2020. A/O X4 VSS. PT O2 SATS 93% RA. PT COMPLAINS OF ACHES AND CRAMPING IN HER HANDS AND FEET.
[2019-12-05 13:54] LABS: Basophils # (auto) 0.1 10 ^3/uL (0-0.2); Basophils % (auto) 0.7 % (0.0-2.0); Eosinophils # (auto) 0.1 10 ^3/uL (0-0.8); Hematocrit 34.4 % (36.0-46.0); Hemoglobin 11.2 g/dL (12.2-16.2); Lymphocytes # (auto) 1.4 10 ^3/uL (0.4-5.4); Lymphocytes % (auto) 18.7 % (10.0-50.0); Mean Corpuscular Hemoglobin 27.2 pg (28.0-32.0); Mean Corpuscular Hgb Conc. 32.7 g/dL (32.0-36.0); Mean Corpuscular Volume 83.1 fL (80.0-100.0); Monocytes # (auto) 0.3 10 ^3/uL (0-1.3); Monocytes % (auto) 3.7 % (0.0-12.0); Neutrophils # (auto) 5.7 10 ^3/uL (1.6-8.6); Neutrophils % (auto) 75.9 % (37.0-80.0); Platelet Count (auto) 250 10^3/uL (140-450); Red Blood Cells 4.14 10^6/uL (4.0-5.20); Red Cell Distribution Width 15.6 % (11.8-14.3); White Blood Cell 7.5 10^3/uL (4.4-10.8)
--- NOTE | 2019-12-05 14:03 | NUR ---
PT WAS ASSISTED BY MARITA MOSCOSO TO DO A 6MWT. COMPLETED A TOTAL OF 240 METERS NO CHANGE TO METERS WALKED SINCE LAST 6MWT.
[2019-12-05 14:23] VITALS: BP 111/63
--- NOTE | 2019-12-05 14:23 | NUR ---
Discharge Instructions See e-MAR for any mediations given with this visit. Patient education given on disease process. Patient verbalized understanding. Previous labs reviewed. Patient discharged in stable condition with after care instructions and follow up appointment IN 2 WEEKS NOTE CARDIODYNAMICS BY MARITA MOSCOSO REVIEWED BY SHANTEL TRIPLETT 6MWT BY MARITA MOSCOSO 240 METERS REMAINED THE SAME PREVIOUS TEST VIT B12 R DELTOID IM ADMIN BY SIMON TRIPLETT MG OX PO
[2019-12-05 14:26] LABS: Albumin 3.3 g/dL (3.4-5.0); Calcium 6.2 mg/dL (8.5-10.1); Potassium 4.2 mmol/L (3.5-5.1)
[2019-12-05 14:29] LABS: BUN/Creatinine Ratio 14.4; Bilirubin, Total 0.3 mg/dL (0.2-1.0); Total Protein 6.8 g/dL (6.4-8.2)
[2019-12-05 14:32] LABS: Magnesium 0.7 mg/dL (1.6-2.6)
--- NOTE | 2019-12-05 14:46 | NUR ---
MAGNESIUM LEVEL PT STAT MAGNESIUM CAME BACK AT 0.7. PT CALLED TO COME BACK IN IMMEDIATELY FOR ASSESSMENT AND TX. PT REFUSED STATED SHE WILL COME BACK AFTER HER SKIN APPOINTMENT IN AM. MAGNESIUM OXIDE 800MG ALREADY GIVEN IN THE CLINIC.
== END | disposition home or self-care (01) ==
LOC: CHF HDHVI 13:11
PROVIDERS: ATTEND Internal Medicine Cardiovascular Disease
DX: I27.21 Secondary pulmonary arterial hypertension (principal); R53.83 Other fatigue; R06.02 Shortness of breath; E83.42 Hypomagnesemia; D64.9 Anemia, unspecified; K90.9 Intestinal malabsorption, unspecified; E11.9 Type 2 diabetes mellitus without complications; Z79.899 Other long term (current) drug therapy
CPT/HCPCS: 36415; 80053; 82306; 83036; 83735; 85025; 93701; 94618; 96372; G0463; J3420

== ENCOUNTER → 2019-12-06 | Outpatient (CLI) | payer MEDICARE, MEDICAID ==
[~2019-12-06] MED LIST changes: -CYANOCOBALAMIN (B-12) 1000 MCG/1 ML VIAL IM ONE; -CYANOCOBALAMIN (B-12) 1000 MCG/1 ML VIAL ONE; +MAGNESIUM SULFATE 1GM/100ML 100 ML IV ONE; +MAGNESIUM SULFATE 1GM/100ML 200 ML IV ONE
[2019-12-06 12:30] VITALS: BP 101/67
--- NOTE | 2019-12-06 12:30 | NUR ---
CHF PT ARRIVED TO THE CHF CLINIC FOR TREATMENT FOLLOWING LAB RESULTS FROM 12/05/19. VERBAL ORDERS FROM DR RUSHING RECEIVED ENTERED
--- NOTE | 2019-12-06 12:45 | NUR ---
IV insertion IV access obtained, via clean sterile technique by inserting 22 gauge catheter at RAC after 1 attempt(s). IV secured properly. No trauma to site. Patient tolerated procedure well. NOTE INSERTED BY EMMA TRIPLETT
--- NOTE | 2019-12-06 14:52 | NUR ---
IV removal IV DC'd with sterile technique, catheter fully intact. Pressure dressing applied to site. Patient tolerated procedure well. Discharged with aftercare instructions per MD. NOTE: REMOVED BY EMMA TRIPLETT
[2019-12-06 15:01] VITALS: BP 118/71
--- NOTE | 2019-12-06 15:01 | NUR ---
Discharge Instructions See e-MAR for any mediations given with this visit. Patient education given on disease process. Patient verbalized understanding. Previous labs reviewed. Patient discharged in stable condition with after care instructions and follow up appointment IN 1 WEEK. PRESCRIPTION OF MAG OX 400MG BID SENT ELECTRONICALLY TO PT PHARMACY NOTE MAGNESIUM [id number] ADMIN BY EMMA TRIPLETT/SHANTEL TRIPLETT MAG OX PO ADMIN BY EMMA TRIPLETT
== END | disposition home or self-care (01) ==
LOC: CHF HDHVI 12:34
PROVIDERS: ATTEND Internal Medicine Cardiovascular Disease
DX: I27.21 Secondary pulmonary arterial hypertension (principal); E83.42 Hypomagnesemia; E11.9 Type 2 diabetes mellitus without complications; Z79.899 Other long term (current) drug therapy
CPT/HCPCS: 96365; 96366; G0463; J3475

== ENCOUNTER → 2019-12-15 | Outpatient (CLI) | payer MEDICARE, MEDICAID ==
[~2019-12-15] MED LIST changes: -MAGNESIUM OXIDE 400 MG TAB ONE; -MAGNESIUM OXIDE 400 MG TAB PO ONE; -MAGNESIUM SULFATE 1GM/100ML 200 ML IV ONE
[2019-12-15 10:20] VITALS: BP 123/62
--- NOTE | 2019-12-15 10:20 | NUR ---
CHF PT ARRIVED TO THE CHF CLINIC FOR IV MAG PER MD ORDERS. A/O X4 VSS
--- NOTE | 2019-12-15 10:45 | NUR ---
IV insertion IV access obtained, via clean sterile technique by inserting 22 gauge catheter at lac after 1 attempt(s). IV secured properly. No trauma to site. Patient tolerated procedure well. See eMAR for medications given.
--- NOTE | 2019-12-15 10:50 | NUR ---
Stat labs sent
[2019-12-15 11:27] LABS: Magnesium 1.3 mg/dL (1.6-2.6); Potassium 3.5 mmol/L (3.5-5.1)
--- NOTE | 2019-12-15 11:30 | NUR ---
Dr Rodriges aware of mag level, patient medicated as ordered, home medication of Mag Ox 400mg BID to be continued.
--- NOTE | 2019-12-15 12:52 | NUR ---
IV removal IV DC'd with sterile technique, catheter fully intact. Pressure dressing applied to site. Patient tolerated procedure well.
[2019-12-15 12:59] VITALS: BP 118/67
--- NOTE | 2019-12-15 12:59 | NUR ---
CHF Clinic Discharge Instructions See e-MAR for any mediations given with this visit. Patient education given on disease process. Patient verbalized understanding. Previous labs reviewed. Patient discharged in stable condition with after care instructions and follow up appointment. Note Mag rider [id number] admin by Samantha TRIPLETT.
== END | disposition home or self-care (01) ==
LOC: CHF HDHVI 10:19
PROVIDERS: ATTEND Internal Medicine Cardiovascular Disease
DX: R94.4 Abnormal results of kidney function studies (principal); E83.42 Hypomagnesemia; E11.9 Type 2 diabetes mellitus without complications; Z79.899 Other long term (current) drug therapy
CPT/HCPCS: 36415; 82565; 83735; 84132; 84520; 96365; 96366; G0463; J3475

== ENCOUNTER → 2019-12-21 | Outpatient (CLI) | payer MEDICARE, MEDICAID ==
[~2019-12-21] MED LIST changes: +CYANOCOBALAMIN (B-12) 1000 MCG/1 ML VIAL IM ONE; +CYANOCOBALAMIN (B-12) 1000 MCG/1 ML VIAL ONE; +FUROSEMIDE 40 MG/4 ML VIAL IV ONE; +FUROSEMIDE 40 MG/4 ML VIAL ONE; +MAGNESIUM OXIDE 400 MG TAB ONE; +MAGNESIUM OXIDE 400 MG TAB PO ONE; -MAGNESIUM SULFATE 1GM/100ML 100 ML IV ONE; +POTASSIUM CHL 10 Meq TABLET PO ONE; +POTASSIUM CHL 20 Meq TABLET PO ONE
--- NOTE | 2019-12-21 13:45 | NUR ---
CHF PT ARRIVED AT THE [facility] FOR TX AND FOLLOW UP. VSS, LABS DRAWN AND SENT
[2019-12-21 14:04] VITALS: BP 102/62
--- NOTE | 2019-12-21 14:04 | NUR ---
Discharge Instructions See e-MAR for any mediations given with this visit. Patient education given on disease process. Patient verbalized understanding. Previous labs reviewed. Patient discharged in stable condition with after care instructions and follow up appointment. MEDICATIONS VITAMIN B12 IM RIGHT DELTOID LOT [id number] EXP 03/24 LASIX IVP KDUR PO MAG OXIDE PO PT TO FOLLOW UP JANUARY 03 1330
[2019-12-21 16:00] LABS: BUN/Creatinine Ratio 16.3; Basophils # (auto) 0.1 10 ^3/uL (0-0.2); Calcium 8.8 mg/dL (8.5-10.1); Eosinophils # (auto) 0.1 10 ^3/uL (0-0.8); Eosinophils % (auto) 0.9 % (0.0-7.0); Hematocrit 33.2 % (36.0-46.0); Hemoglobin 10.8 g/dL (12.2-16.2); Lymphocytes # (auto) 1.4 10 ^3/uL (0.4-5.4); Magnesium 2.1 mg/dL (1.6-2.6); Mean Corpuscular Hemoglobin 27.2 pg (28.0-32.0); Mean Corpuscular Hgb Conc. 32.6 g/dL (32.0-36.0); Mean Corpuscular Volume 83.5 fL (80.0-100.0); Monocytes # (auto) 0.3 10 ^3/uL (0-1.3); Neutrophils # (auto) 5.6 10 ^3/uL (1.6-8.6); Neutrophils % (auto) 75.1 % (37.0-80.0); Nucleated Red Blood Cells % 0.1 %; Platelet Count (auto) 273 10^3/uL (140-450); Potassium 4.1 mmol/L (3.5-5.1); Red Blood Cells 3.97 10^6/uL (4.0-5.20); Red Cell Distribution Width 15.6 % (11.8-14.3); White Blood Cell 7.5 10^3/uL (4.4-10.8)
== END | disposition home or self-care (01) ==
LOC: CHF HDHVI 13:44
PROVIDERS: ATTEND Internal Medicine Cardiovascular Disease
DX: E61.2 Magnesium deficiency (principal); I11.0 Hypertensive heart disease with heart failure; I50.9 Heart failure, unspecified; R53.83 Other fatigue; I27.21 Secondary pulmonary arterial hypertension; D64.9 Anemia, unspecified; Z79.899 Other long term (current) drug therapy
CPT/HCPCS: 36415; 80048; 83735; 85025; 96372; 96374; G0463; J1940; J3420

== ENCOUNTER → 2020-02-06 | Outpatient (CLI) | payer MEDICARE, MEDICAID ==
[2020-02-06 13:30] VITALS: BP 131/63
--- NOTE | 2020-02-06 13:30 | NUR ---
PT. TO PAH CLINIC FOR EVAL. AND LABS PER MD ORDER. PT. HAS BEEN SEQUESTERED IN HOME WITH [facility] [employer] D/T MEDICAL HX, AND HAS EXPERERIENCED A 5 LB. WT. GAIN SINCE LAST VISIT. SEE NSG ASSESS.
--- NOTE | 2020-02-06 13:45 | NUR ---
LABS DRAWN AND SENT.
[2020-02-06 14:00] VITALS: BP 129/66
--- NOTE | 2020-02-06 14:00 | NUR ---
Discharge Instructions See e-MAR for any mediations given with this visit. Patient education given on disease process. Patient verbalized understanding. Previous labs reviewed. Patient discharged in stable condition with after care instructions and follow up appointment. PT. TO FOLLOW UP WITH ECHO APPT. THEN WITH DR. RUSHING PER SCHEDULED APPT. NAD AT DISCHARGE . ADDITIONAL DIETARY RECOMENDATIONS MADE TO PT. FOR WT. LOSS WHICH HAS BEEN PREVIOUSLY GIVEN TO PT. BY DR. RUSHING.
[2020-02-06 16:01] LABS: Albumin 3.4 g/dL (3.4-5.0); BUN/Creatinine Ratio 11.4; Calcium 8.5 mg/dL (8.5-10.1); Magnesium 1.4 mg/dL (1.6-2.6); Potassium 3.9 mmol/L (3.5-5.1)
[2020-02-06 16:04] LABS: Bilirubin, Total 0.3 mg/dL (0.2-1.0); Total Protein 6.8 g/dL (6.4-8.2)
[2020-02-06 16:08] LABS: Basophils # (auto) 0.1 10 ^3/uL (0-0.2); Basophils % (auto) 0.7 % (0.0-2.0); Eosinophils # (auto) 0.1 10 ^3/uL (0-0.8); Hematocrit 33.7 % (36.0-46.0); Hemoglobin 10.8 g/dL (12.2-16.2); Lymphocytes # (auto) 1.7 10 ^3/uL (0.4-5.4); Lymphocytes % (auto) 23.2 % (10.0-50.0); Mean Corpuscular Hgb Conc. 32.2 g/dL (32.0-36.0); Monocytes # (auto) 0.3 10 ^3/uL (0-1.3); Monocytes % (auto) 4.5 % (0.0-12.0); Neutrophils # (auto) 5.3 10 ^3/uL (1.6-8.6); Neutrophils % (auto) 70.6 % (37.0-80.0); Nucleated Red Blood Cells % 0.1 %; Platelet Count (auto) 275 10^3/uL (140-450); Red Blood Cells 4.01 10^6/uL (4.0-5.20); Red Cell Distribution Width 15.1 % (11.8-14.3); White Blood Cell 7.5 10^3/uL (4.4-10.8)
== END | disposition home or self-care (01) ==
LOC: CHF HDHVI 13:44
PROVIDERS: ATTEND Internal Medicine Cardiovascular Disease
DX: I10 Essential (primary) hypertension (principal); D64.9 Anemia, unspecified; E61.2 Magnesium deficiency
CPT/HCPCS: 36415; 80053; 83735; 85025; G0463

== ENCOUNTER → 2020-02-08 | Outpatient (CLI) | payer MEDICARE, MEDICAID ==
[~2020-02-08] MED LIST changes: -CYANOCOBALAMIN (B-12) 1000 MCG/1 ML VIAL IM ONE; -CYANOCOBALAMIN (B-12) 1000 MCG/1 ML VIAL ONE; +FUROSEMIDE 20 MG/2 ML VIAL ONE; -FUROSEMIDE 40 MG/4 ML VIAL ONE; -MAGNESIUM OXIDE 400 MG TAB ONE; -MAGNESIUM OXIDE 400 MG TAB PO ONE; +MAGNESIUM SULFATE 1GM/100ML 200 ML IV ONE
[2020-02-08] MEDS: MAGNESIUM SULFATE 1GM/100ML 100 ML IV SCH ×2 (13:33→14:35)
== END | disposition home or self-care (01) ==
LOC: Rad HDHVI 13:15
PROVIDERS: ATTEND Internal Medicine Cardiovascular Disease
DX: E83.42 Hypomagnesemia (principal); R60.0 Localized edema; I11.0 Hypertensive heart disease with heart failure; I50.9 Heart failure, unspecified; I27.21 Secondary pulmonary arterial hypertension; E11.9 Type 2 diabetes mellitus without complications; Z79.899 Other long term (current) drug therapy
CPT/HCPCS: 93306; 96365; 96366; 96375; G0463; J1940; J3475

== ENCOUNTER → 2020-02-21 | Outpatient (CLI) | payer MEDICARE, MEDICAID ==
[~2020-02-21] VITALS: Ht 30.5 cm; Wt 0.5 kg
[~2020-02-21] MED LIST changes: +CYANOCOBALAMIN (B-12) 1000 MCG/1 ML VIAL IM ONE; +CYANOCOBALAMIN (B-12) 1000 MCG/1 ML VIAL ONE; -FUROSEMIDE 20 MG/2 ML VIAL ONE; -FUROSEMIDE 40 MG/4 ML VIAL IV ONE; -MAGNESIUM SULFATE 1GM/100ML 200 ML IV ONE; -POTASSIUM CHL 10 Meq TABLET PO ONE; -POTASSIUM CHL 20 Meq TABLET PO ONE
--- NOTE | 2020-02-21 11:46 | NUR ---
Patient into clinic for lab draw and MD appt. Pt AAOx4, ambulatory, breathing even and unlabored.
--- NOTE | 2020-02-21 12:15 | NUR ---
CHF Clinic Discharge Instructions See e-MAR for any mediations given with this visit. Patient education given on disease process. Patient verbalized understanding. Previous labs reviewed. Patient discharged in stable condition with after care instructions and follow up appointment. Note B12 IM L deltoid admin by Zoie TRIPLETT. Pt has appt with Dr Rodriges today, will call patient with lab results.
[2020-02-21 13:23] LABS: Potassium 3.8 mmol/L (3.5-5.1)
== END | disposition home or self-care (01) ==
LOC: CHF HDHVI 11:58
PROVIDERS: ATTEND Internal Medicine Cardiovascular Disease
DX: I27.21 Secondary pulmonary arterial hypertension (principal); E83.42 Hypomagnesemia; R53.83 Other fatigue; E87.6 Hypokalemia; R00.2 Palpitations; I11.0 Hypertensive heart disease with heart failure; I50.9 Heart failure, unspecified; E11.9 Type 2 diabetes mellitus without complications; Z79.899 Other long term (current) drug therapy
CPT/HCPCS: 36415; 82565; 83735; 84132; 84520; 96372; G0463; J3420

== ENCOUNTER → 2020-03-04 | Outpatient (CLI) | payer MEDICARE, MEDICAID ==
[~2020-03-04] VITALS: Ht 160 cm; Wt 82.1 kg
[~2020-03-04] MED LIST changes: +ALBU0.084 NEB; +ALBUAER3 INH; +ALEN70TA2 PO; -CYANOCOBALAMIN (B-12) 1000 MCG/1 ML VIAL IM ONE; -CYANOCOBALAMIN (B-12) 1000 MCG/1 ML VIAL ONE; +DEXL30CA4 PO; +FENO145T27 PO; +FLUT250M2 INH; +INSU100I45 SC; +INSU300I SC; +LINA1CAP2 PO; +MACI1TAB2 PO; +MAGN400C2 PO; +MONT10TA34 PO; +PIRO-23 PO; +POTA8TAB2 PO; +RIOC1TAB9 PO; +TORS20TA20 PO
[2020-03-04 11:30] VITALS: BP 123/65
--- NOTE | 2020-03-04 11:30 | NUR ---
Pt into clinic for scheduled preop, AAOx4, ambulatory, breathing even and unlabored.
[2020-03-04 12:15] VITALS: BP 123/65
--- NOTE | 2020-03-04 12:15 | NUR ---
CHF Clinic Discharge Instructions See e-MAR for any mediations given with this visit. Patient education given on disease process. Patient verbalized understanding. Previous labs reviewed. Patient discharged in stable condition with after care instructions and follow up appointment.
[2020-03-04 15:47] LABS: Basophils # (auto) 0.1 10 ^3/uL (0-0.2); Eosinophils # (auto) 0.1 10 ^3/uL (0-0.8); Eosinophils % (auto) 1.2 % (0.0-7.0); Hematocrit 34.1 % (36.0-46.0); Hemoglobin 11.1 g/dL (12.2-16.2); Lymphocytes # (auto) 1.5 10 ^3/uL (0.4-5.4); Lymphocytes % (auto) 20.2 % (10.0-50.0); Mean Corpuscular Hemoglobin 27.3 pg (28.0-32.0); Mean Corpuscular Hgb Conc. 32.6 g/dL (32.0-36.0); Mean Corpuscular Volume 83.8 fL (80.0-100.0); Monocytes # (auto) 0.3 10 ^3/uL (0-1.3); Monocytes % (auto) 4.4 % (0.0-12.0); Neutrophils # (auto) 5.5 10 ^3/uL (1.6-8.6); Neutrophils % (auto) 73.2 % (37.0-80.0); Platelet Count (auto) 294 10^3/uL (140-450); Red Blood Cells 4.07 10^6/uL (4.0-5.20); Red Cell Distribution Width 15.1 % (11.8-14.3); White Blood Cell 7.5 10^3/uL (4.4-10.8)
[2020-03-04 15:56] LABS: Calcium 8.6 mg/dL (8.5-10.1); Potassium 3.6 mmol/L (3.5-5.1)
[2020-03-04 15:58] LABS: BUN/Creatinine Ratio 17.1
[2020-03-04 16:01] LABS: INR 0.96 (0.9-1.15); Partial Thromboplastin Time 28.9 sec (23.64-32.05)
== END | disposition home or self-care (01) ==
LOC: Rad HDHVI 11:17
PROVIDERS: ATTEND Internal Medicine Cardiovascular Disease
DX: Z01.812 Encounter for preprocedural laboratory examination (principal)
CPT/HCPCS: 36415; 71046; 80048; 85025; 85610; 85730; 93005; G0463

== ENCOUNTER → 2020-03-07 | Day surgery (SDC) | payer MEDICARE, MEDICAID ==
[~2020-03-07] VITALS: Ht 160 cm; Wt 82.0 kg
[~2020-03-07] MED LIST changes: +ANGIOMAX 250 MG VIAL IV ONE; +ATROPINE SULF 1 MG/10ml SYR ONE; +IOHEXOL 350 MG/ML 100ML IJ ONE; +LIDOCAINE 2%HCL (LOCAL ANESTH.) INJ 20ML MDV ONE; +MIDAZOLAM HCL 1MG/1ML-2 ML VIAL ONE; +SODIUM CHL 0.9% 0 ML ONE; +diphenhdrAMINE HCL 50 MG/1 ML VL ONE; +fentaNYL CITRATE 100 MCG/2 ML VL ONE
== END | disposition home or self-care (01) ==
LOC: CATH 09:03
PROVIDERS: ATTEND Internal Medicine Cardiovascular Disease
DX: R06.02 Shortness of breath (principal); I25.10 Atherosclerotic heart disease of native coronary artery without angina pectoris; E11.9 Type 2 diabetes mellitus without complications; E78.00 Pure hypercholesterolemia, unspecified; I11.0 Hypertensive heart disease with heart failure; K21.9 Gastro-esophageal reflux disease without esophagitis; M19.90 Unspecified osteoarthritis, unspecified site; Z11.59 Encounter for screening for other viral diseases
CPT/HCPCS: 93460; C1751; C1760; C1894; J1200; J1644; J2250; J3010; J7030; Q9967; U0003; 99152; 99153

== ENCOUNTER → 2020-06-14 | Outpatient (CLI) | payer MEDICARE, MEDICAID ==
[~2020-06-14] MED LIST changes: -ANGIOMAX 250 MG VIAL IV ONE; -ATROPINE SULF 1 MG/10ml SYR ONE; +CYANOCOBALAMIN (B-12) 1000 MCG/1 ML VIAL IM ONE; +CYANOCOBALAMIN (B-12) 1000 MCG/1 ML VIAL ONE; -IOHEXOL 350 MG/ML 100ML IJ ONE; -LIDOCAINE 2%HCL (LOCAL ANESTH.) INJ 20ML MDV ONE; -MIDAZOLAM HCL 1MG/1ML-2 ML VIAL ONE; -SODIUM CHL 0.9% 0 ML ONE; -diphenhdrAMINE HCL 50 MG/1 ML VL ONE; -fentaNYL CITRATE 100 MCG/2 ML VL ONE
[2020-06-14 13:35] VITALS: BP 102/62
[2020-06-14 14:00] VITALS: BP 104/66
[2020-06-14 16:28] LABS: Basophils # (auto) 0.1 10 ^3/uL (0-0.2); Basophils % (auto) 0.8 % (0.0-2.0); Eosinophils # (auto) 0.1 10 ^3/uL (0-0.8); Lymphocytes # (auto) 1.6 10 ^3/uL (0.4-5.4); Mean Corpuscular Volume 81.3 fL (80.0-100.0); Red Cell Distribution Width 16.2 % (11.8-14.3)
[2020-06-14 16:30] LABS: Hematocrit 32.3 % (36.0-46.0); Hemoglobin 10.6 g/dL (12.2-16.2); Lymphocytes % (auto) 22.8 % (10.0-50.0); Mean Corpuscular Hemoglobin 26.6 pg (28.0-32.0); Mean Corpuscular Hgb Conc. 32.7 g/dL (32.0-36.0); Monocytes # (auto) 0.2 10 ^3/uL (0-1.3); Monocytes % (auto) 3.4 % (0.0-12.0); Platelet Count (auto) 248 10^3/uL (140-450); Red Blood Cells 3.97 10^6/uL (4.0-5.20)
[2020-06-14 16:31] LABS: Calcium 7.3 mg/dL (8.5-10.1); Potassium 3.2 mmol/L (3.5-5.1)
[2020-06-14 16:35] LABS: Albumin 3.5 g/dL (3.4-5.0); BUN/Creatinine Ratio 16.1
[2020-06-14 16:38] LABS: Bilirubin, Total 0.3 mg/dL (0.2-1.0); Total Protein 6.7 g/dL (6.4-8.2)
[2020-06-14 16:42] LABS: Magnesium 0.8 mg/dL (1.6-2.6)
== END | disposition home or self-care (01) ==
LOC: CHF HDHVI 13:28
PROVIDERS: ATTEND Internal Medicine Cardiovascular Disease
DX: I27.0 Primary pulmonary hypertension (principal); R06.02 Shortness of breath; R53.83 Other fatigue; I25.10 Atherosclerotic heart disease of native coronary artery without angina pectoris; E11.9 Type 2 diabetes mellitus without complications; Z79.899 Other long term (current) drug therapy
CPT/HCPCS: 36415; 80053; 82306; 83036; 83735; 84443; 85025; 96372; G0463; J3420

== ENCOUNTER → 2020-06-17 | Outpatient (CLI) | payer MEDICARE, MEDICAID ==
[~2020-06-17] MED LIST changes: -CYANOCOBALAMIN (B-12) 1000 MCG/1 ML VIAL IM ONE; -CYANOCOBALAMIN (B-12) 1000 MCG/1 ML VIAL ONE; +MAGNESIUM SULFATE 1GM/100ML 100 ML IV ONE; +MAGNESIUM SULFATE 1GM/100ML 300 ML IV ONE; +POTASSIUM CHL 20 Meq TABLET PO ONE
[2020-06-17 12:00] VITALS: BP 112/56
--- NOTE | 2020-06-17 12:00 | NUR ---
CLINIC PT ARRIVED TO THE CHF CLINIC. LABS DRAWN ON 06/14/20 RESULTED A MAGNESIUM LEVEL OF 0.8, PT WAS CALLED TO COME INTO THE CLINIC FOR IV MAGNESIUM PER MD ORDERS. A/OX4, AMBULATORY, BREATHING IS EVEN AND UNLABORED.
[2020-06-17 15:26] VITALS: BP 114/62
--- NOTE | 2020-06-17 15:26 | NUR ---
Discharge Instructions See e-MAR for any mediations given with this visit. Patient education given on disease process. Patient verbalized understanding. Previous labs reviewed. Patient discharged in stable condition with after care instructions and follow up appointment ON WED. [place] [id number] ADMIN BY EMMA DC PO ADMIN BY EMMA TRIPLETT
== END | disposition home or self-care (01) ==
LOC: CHF HDHVI 11:59
PROVIDERS: ATTEND Internal Medicine Cardiovascular Disease
DX: E83.42 Hypomagnesemia (principal); R53.83 Other fatigue; I25.10 Atherosclerotic heart disease of native coronary artery without angina pectoris; E11.9 Type 2 diabetes mellitus without complications; Z79.899 Other long term (current) drug therapy
CPT/HCPCS: 96365; 96366; G0463; J3475

== ENCOUNTER → 2020-06-19 | Outpatient (CLI) | payer MEDICARE, MEDICAID ==
[~2020-06-19] MED LIST changes: -MAGNESIUM SULFATE 1GM/100ML 300 ML IV ONE; -POTASSIUM CHL 20 Meq TABLET PO ONE
[2020-06-19 12:30] VITALS: BP 113/57
[2020-06-19 14:58] VITALS: BP 123/68
[2020-06-19 20:07] LABS: Magnesium 1.6 mg/dL (1.6-2.6); Potassium 4.2 mmol/L (3.5-5.1)
== END | disposition home or self-care (01) ==
LOC: CHF HDHVI 12:27
PROVIDERS: ATTEND Internal Medicine Cardiovascular Disease
DX: E83.42 Hypomagnesemia (principal); I49.9 Cardiac arrhythmia, unspecified; I27.21 Secondary pulmonary arterial hypertension; I25.10 Atherosclerotic heart disease of native coronary artery without angina pectoris; E11.9 Type 2 diabetes mellitus without complications; Z79.899 Other long term (current) drug therapy
CPT/HCPCS: 36415; 82565; 83735; 84132; 84520; 96365; 96366; G0463; J3475

== ENCOUNTER → 2020-06-27 | Outpatient (CLI) | payer MEDICARE, MEDICAID ==
[2020-06-27 11:54] VITALS: BP 122/58
[2020-06-27 13:31] LABS: Basophils # (auto) 0.1 10 ^3/uL (0-0.2); Eosinophils # (auto) 0.1 10 ^3/uL (0-0.8); Eosinophils % (auto) 1.3 % (0.0-7.0); Lymphocytes # (auto) 1.5 10 ^3/uL (0.4-5.4)
[2020-06-27 13:33] LABS: Basophils % (auto) 1.3 % (0.0-2.0); Hematocrit 32.7 % (36.0-46.0); Lymphocytes % (auto) 19.3 % (10.0-50.0); Mean Corpuscular Hemoglobin 27.1 pg (28.0-32.0); Mean Corpuscular Hgb Conc. 33.5 g/dL (32.0-36.0); Mean Corpuscular Volume 80.9 fL (80.0-100.0); Monocytes # (auto) 0.4 10 ^3/uL (0-1.3); Monocytes % (auto) 4.6 % (0.0-12.0); Neutrophils # (auto) 5.8 10 ^3/uL (1.6-8.6); Neutrophils % (auto) 73.5 % (37.0-80.0); Nucleated Red Blood Cells % 0.1 %; Platelet Count (auto) 269 10^3/uL (140-450); Red Blood Cells 4.05 10^6/uL (4.0-5.20); Red Cell Distribution Width 16.4 % (11.8-14.3); White Blood Cell 7.9 10^3/uL (4.4-10.8)
[2020-06-27 13:42] LABS: BUN/Creatinine Ratio 17.4; Calcium 8.2 mg/dL (8.5-10.1); Magnesium 1.2 mg/dL (1.6-2.6); Potassium 3.7 mmol/L (3.5-5.1)
[2020-06-27 15:28] VITALS: BP 115/51
== END | disposition home or self-care (01) ==
LOC: CHF HDHVI 11:57
PROVIDERS: ATTEND Internal Medicine Cardiovascular Disease
DX: E83.42 Hypomagnesemia (principal); I25.10 Atherosclerotic heart disease of native coronary artery without angina pectoris; I27.21 Secondary pulmonary arterial hypertension; R53.83 Other fatigue; R25.2 Cramp and spasm; E11.9 Type 2 diabetes mellitus without complications; Z79.899 Other long term (current) drug therapy
CPT/HCPCS: 36415; 80048; 83735; 85025; 96365; 96366; G0463; J3475

== ENCOUNTER → 2020-12-13 | Outpatient (CLI) | payer MEDICARE, MEDICAID ==
[~2020-12-13] MED LIST changes: +CYANOCOBALAMIN (B-12) 1000 MCG/1 ML VIAL IM ONE; +CYANOCOBALAMIN (B-12) 1000 MCG/1 ML VIAL ONE; -MAGNESIUM SULFATE 1GM/100ML 100 ML IV ONE; -PIRO-23 PO; +PIRO20CA PO; +RIOC1TAB15 PO; -RIOC1TAB9 PO
[2020-12-13 14:25] VITALS: BP 103/62
[2020-12-13 14:50] VITALS: BP 110/68
[2020-12-13 15:38] LABS: Basophils # (auto) 0.1 10 ^3/uL (0-0.2); Eosinophils # (auto) 0.1 10 ^3/uL (0-0.8); Lymphocytes # (auto) 1.6 10 ^3/uL (0.4-5.4); Mean Corpuscular Volume 79.9 fL (80.0-100.0); Monocytes # (auto) 0.3 10 ^3/uL (0-1.3); Nucleated Red Blood Cells % 0.1 %; Red Blood Cells 4.35 10^6/uL (4.0-5.20)
[2020-12-13 15:40] LABS: Basophils % (auto) 0.8 % (0.0-2.0); Hematocrit 34.8 % (36.0-46.0); Hemoglobin 11.5 g/dL (12.2-16.2); Lymphocytes % (auto) 23.5 % (10.0-50.0); Mean Corpuscular Hemoglobin 26.4 pg (28.0-32.0); Mean Corpuscular Hgb Conc. 33.1 g/dL (32.0-36.0); Monocytes % (auto) 4.4 % (0.0-12.0); Neutrophils # (auto) 4.7 10 ^3/uL (1.6-8.6); Neutrophils % (auto) 70.3 % (37.0-80.0); Platelet Count (auto) 279 10^3/uL (140-450); Red Cell Distribution Width 16.1 % (11.8-14.3); White Blood Cell 6.7 10^3/uL (4.4-10.8)
[2020-12-13 17:18] LABS: Magnesium 2.2 mg/dL (1.6-2.6)
[2020-12-13 17:19] LABS: Alanine Aminotransferase 28 U/L (13-56); Alkaline Phosphatase 117 U/L (45-117); Anion Gap 7 (5-15); Aspartate Aminotransferase 18 U/L (15-37); BUN/Creatinine Ratio 20.7; Blood Urea Nitrogen 25 mg/dL (7-18); Carbon Dioxide 28 mmol/L (21-32); Chloride 105 mmol/L (98-107); GFR African American 58 mL/min; GFR Non-African American 48 mL/min; Glucose 87 mg/dL (74-106); Potassium 3.9 mmol/L (3.5-5.1); Sodium 140 mmol/L (136-145)
[2020-12-13 17:20] LABS: Albumin 3.7 g/dL (3.4-5.0); Bilirubin, Total 0.3 mg/dL (0.2-1.0); Calcium 8.5 mg/dL (8.5-10.1); Total Protein 7.3 g/dL (6.4-8.2)
== END | disposition home or self-care (01) ==
LOC: Rad HDHVI 14:31
PROVIDERS: ATTEND Internal Medicine Cardiovascular Disease
DX: I27.0 Primary pulmonary hypertension (principal); I50.23 Acute on chronic systolic (congestive) heart failure; E11.42 Type 2 diabetes mellitus with diabetic polyneuropathy; Z79.899 Other long term (current) drug therapy
CPT/HCPCS: 36415; 80053; 82306; 83036; 83735; 85025; 93306; 96372; G0463; J3420

== ENCOUNTER → 2021-01-29 | Outpatient (CLI) | payer MEDICARE, MEDICAID ==
[~2021-01-29] MED LIST changes: -MONT10TA34 PO; +MONT10TA42 PO
[2021-01-29 11:37] VITALS: BP 115/60
[2021-01-29 11:54] VITALS: BP 108/65
[2021-01-29 15:36] LABS: Basophils # (auto) 0.1 10 ^3/uL (0-0.2); Eosinophils # (auto) 0.1 10 ^3/uL (0-0.8); Monocytes # (auto) 0.3 10 ^3/uL (0-1.3); White Blood Cell 7.6 10^3/uL (4.4-10.8)
[2021-01-29 15:38] LABS: Basophils % (auto) 1.2 % (0.0-2.0); Eosinophils % (auto) 1.1 % (0.0-7.0); Hemoglobin 11.6 g/dL (12.2-16.2); Lymphocytes # (auto) 1.7 10 ^3/uL (0.4-5.4); Mean Corpuscular Hemoglobin 26.2 pg (28.0-32.0); Mean Corpuscular Volume 79.3 fL (80.0-100.0); Monocytes % (auto) 4.4 % (0.0-12.0); Neutrophils # (auto) 5.3 10 ^3/uL (1.6-8.6); Neutrophils % (auto) 70.3 % (37.0-80.0); Platelet Count (auto) 263 10^3/uL (140-450); Red Blood Cells 4.41 10^6/uL (4.0-5.20); Red Cell Distribution Width 16.8 % (11.8-14.3)
[2021-01-29 15:55] LABS: Albumin 3.5 g/dL (3.4-5.0); Calcium 8.3 mg/dL (8.5-10.1); Potassium 3.8 mmol/L (3.5-5.1)
[2021-01-29 15:59] LABS: BUN/Creatinine Ratio 23.8; Bilirubin, Total 0.4 mg/dL (0.2-1.0); Magnesium 2.4 mg/dL (1.6-2.6); Total Protein 6.7 g/dL (6.4-8.2)
== END | disposition home or self-care (01) ==
LOC: CHF HDHVI 11:38
PROVIDERS: ATTEND Internal Medicine Cardiovascular Disease
DX: I27.21 Secondary pulmonary arterial hypertension (principal); R53.83 Other fatigue; R05 Cough; I11.0 Hypertensive heart disease with heart failure; I50.23 Acute on chronic systolic (congestive) heart failure; E11.42 Type 2 diabetes mellitus with diabetic polyneuropathy; Z79.899 Other long term (current) drug therapy
CPT/HCPCS: 36415; 80053; 83735; 85025; 96372; G0463; J3420

== ENCOUNTER → 2021-03-25 | Outpatient (CLI) | payer MEDICARE, MEDICAID ==
[2021-03-25 13:16] VITALS: BP 105/57
[2021-03-25 13:47] VITALS: BP 116/61
[2021-03-25 15:23] LABS: Basophils # (auto) 0 10 ^3/uL (0-0.2); Basophils % (auto) 0.6 % (0.0-2.0); Eosinophils # (auto) 0.1 10 ^3/uL (0-0.8); Eosinophils % (auto) 1.1 % (0.0-7.0); Hemoglobin 11.3 g/dL (12.2-16.2); Lymphocytes # (auto) 1.6 10 ^3/uL (0.4-5.4); Lymphocytes % (auto) 21.3 % (10.0-50.0); Mean Corpuscular Hemoglobin 27.4 pg (28.0-32.0); Mean Corpuscular Hgb Conc. 34.2 g/dL (32.0-36.0); Mean Corpuscular Volume 80.1 fL (80.0-100.0); Monocytes # (auto) 0.3 10 ^3/uL (0-1.3); Monocytes % (auto) 3.9 % (0.0-12.0); Neutrophils # (auto) 5.5 10 ^3/uL (1.6-8.6); Neutrophils % (auto) 73.1 % (37.0-80.0); Platelet Count (auto) 243 10^3/uL (140-450); Red Blood Cells 4.13 10^6/uL (4.0-5.20); Red Cell Distribution Width 17.3 % (11.8-14.3); White Blood Cell 7.6 10^3/uL (4.4-10.8)
[2021-03-25 15:29] LABS: Albumin 3.4 g/dL (3.4-5.0); Calcium 8.1 mg/dL (8.5-10.1); Potassium 3.8 mmol/L (3.5-5.1)
[2021-03-25 15:33] LABS: Bilirubin, Total 0.3 mg/dL (0.2-1.0); Total Protein 6.7 g/dL (6.4-8.2)
== END | disposition home or self-care (01) ==
LOC: CHF HDHVI 13:20
PROVIDERS: ATTEND Internal Medicine Cardiovascular Disease
DX: I27.21 Secondary pulmonary arterial hypertension (principal); R53.83 Other fatigue; I11.0 Hypertensive heart disease with heart failure; I50.22 Chronic systolic (congestive) heart failure; E11.42 Type 2 diabetes mellitus with diabetic polyneuropathy; Z79.899 Other long term (current) drug therapy
CPT/HCPCS: 36415; 80053; 82306; 83036; 83735; 85025; 96372; G0463; J3420

== ENCOUNTER → 2021-04-22 | Outpatient (CLI) | payer MEDICARE, MEDICAID ==
[2021-04-22 13:45] VITALS: BP 107/51
[2021-04-22 14:20] VITALS: BP 103/53
[2021-04-22 15:02] LABS: Basophils # (auto) 0.1 10 ^3/uL (0-0.2); Basophils % (auto) 0.7 % (0.0-2.0); Eosinophils # (auto) 0.1 10 ^3/uL (0-0.8); Mean Corpuscular Volume 80.6 fL (80.0-100.0); Red Blood Cells 4.18 10^6/uL (4.0-5.20)
[2021-04-22 15:04] LABS: Hematocrit 33.6 % (36.0-46.0); Hemoglobin 11.2 g/dL (12.2-16.2); Lymphocytes % (auto) 24.8 % (10.0-50.0); Mean Corpuscular Hemoglobin 26.8 pg (28.0-32.0); Mean Corpuscular Hgb Conc. 33.2 g/dL (32.0-36.0); Monocytes # (auto) 0.3 10 ^3/uL (0-1.3); Neutrophils # (auto) 5.7 10 ^3/uL (1.6-8.6); Neutrophils % (auto) 69.5 % (37.0-80.0); White Blood Cell 8.2 10^3/uL (4.4-10.8)
[2021-04-22 15:25] LABS: Potassium 3.9 mmol/L (3.5-5.1)
[2021-04-22 15:32] LABS: Albumin 3.3 g/dL (3.4-5.0); BUN/Creatinine Ratio 18.1; Bilirubin, Total 0.3 mg/dL (0.2-1.0); Calcium 8.3 mg/dL (8.5-10.1); Magnesium 2.2 mg/dL (1.6-2.6); Total Protein 6.7 g/dL (6.4-8.2)
== END | disposition home or self-care (01) ==
LOC: CHF HDHVI 13:45
PROVIDERS: ATTEND Internal Medicine Cardiovascular Disease
DX: I27.21 Secondary pulmonary arterial hypertension (principal); I11.0 Hypertensive heart disease with heart failure; I50.22 Chronic systolic (congestive) heart failure; E11.42 Type 2 diabetes mellitus with diabetic polyneuropathy; R53.83 Other fatigue; Z79.899 Other long term (current) drug therapy
CPT/HCPCS: 36415; 80053; 83735; 85025; 93005; 96372; G0463; J3420

== ENCOUNTER → 2021-05-20 | Outpatient (CLI) | payer MEDICARE, MEDICAID ==
[2021-05-20 13:57] VITALS: BP 117/56
[2021-05-20 14:13] VITALS: BP 114/57
[2021-05-20 15:19] LABS: Basophils # (auto) 0.1 10 ^3/uL (0-0.2); Basophils % (auto) 0.8 % (0.0-2.0); Eosinophils # (auto) 0.2 10 ^3/uL (0-0.8); Hematocrit 34.8 % (36.0-46.0); Hemoglobin 11.5 g/dL (12.2-16.2); Lymphocytes % (auto) 24.1 % (10.0-50.0); Mean Corpuscular Hgb Conc. 33.2 g/dL (32.0-36.0); Mean Corpuscular Volume 81.4 fL (80.0-100.0); Monocytes # (auto) 0.4 10 ^3/uL (0-1.3); Neutrophils # (auto) 5.7 10 ^3/uL (1.6-8.6); Neutrophils % (auto) 68.1 % (37.0-80.0); Red Blood Cells 4.27 10^6/uL (4.0-5.20); Red Cell Distribution Width 16.6 % (11.8-14.3); White Blood Cell 8.3 10^3/uL (4.4-10.8)
[2021-05-20 15:28] LABS: Albumin 3.5 g/dL (3.4-5.0); Calcium 8.3 mg/dL (8.5-10.1); Magnesium 2.4 mg/dL (1.6-2.6)
[2021-05-20 15:32] LABS: BUN/Creatinine Ratio 17.4; Bilirubin, Total 0.2 mg/dL (0.2-1.0); Total Protein 7.1 g/dL (6.4-8.2)
== END | disposition home or self-care (01) ==
LOC: CHF HDHVI 14:01
PROVIDERS: ATTEND Internal Medicine Cardiovascular Disease
DX: I27.21 Secondary pulmonary arterial hypertension (principal); R53.83 Other fatigue; I11.0 Hypertensive heart disease with heart failure; I50.22 Chronic systolic (congestive) heart failure; E11.42 Type 2 diabetes mellitus with diabetic polyneuropathy; Z79.899 Other long term (current) drug therapy
CPT/HCPCS: 36415; 80053; 83735; 85025; 96372; G0463; J3420

== ENCOUNTER → 2021-08-19 | Outpatient (CLI) | payer MEDICARE, MEDICAID ==
[~2021-08-19] MED LIST changes: -CYANOCOBALAMIN (B-12) 1000 MCG/1 ML VIAL IM ONE; -CYANOCOBALAMIN (B-12) 1000 MCG/1 ML VIAL ONE; +MONT-8 PO; -MONT10TA42 PO
== END | disposition home or self-care (01) ==
LOC: Rad HDHVI 13:06
PROVIDERS: ATTEND Internal Medicine Cardiovascular Disease
DX: I10 Essential (primary) hypertension (principal); E78.5 Hyperlipidemia, unspecified
CPT/HCPCS: 93306

== ENCOUNTER → 2021-09-02 | Outpatient (CLI) | payer MEDICARE, MEDICAID ==
[~2021-09-02] MED LIST changes: +CYANOCOBALAMIN (B-12) 1000 MCG/1 ML VIAL IM ONE; +CYANOCOBALAMIN (B-12) 1000 MCG/1 ML VIAL ONE
[2021-09-02 13:35] VITALS: BP 118/68
[2021-09-02 13:51] VITALS: BP 128/64
[2021-09-02 15:14] LABS: Basophils # (auto) 0.1 10 ^3/uL (0-0.2); Basophils % (auto) 0.7 % (0.0-2.0); Eosinophils # (auto) 0.1 10 ^3/uL (0-0.8); Eosinophils % (auto) 1.1 % (0.0-7.0); Hematocrit 35.1 % (36.0-46.0); Hemoglobin 11.7 g/dL (12.2-16.2); Lymphocytes # (auto) 1.7 10 ^3/uL (0.4-5.4); Mean Corpuscular Hemoglobin 27.5 pg (28.0-32.0); Mean Corpuscular Hgb Conc. 33.4 g/dL (32.0-36.0); Mean Corpuscular Volume 82.3 fL (80.0-100.0); Monocytes # (auto) 0.3 10 ^3/uL (0-1.3); Neutrophils # (auto) 5.6 10 ^3/uL (1.6-8.6); Neutrophils % (auto) 72.2 % (37.0-80.0); Red Blood Cells 4.27 10^6/uL (4.0-5.20); Red Cell Distribution Width 16.3 % (11.8-14.3); White Blood Cell 7.7 10^3/uL (4.4-10.8)
[2021-09-02 15:26] LABS: Albumin 3.2 g/dL (3.4-5.0); Calcium 8.1 mg/dL (8.5-10.1); Magnesium 2.6 mg/dL (1.6-2.6)
[2021-09-02 15:30] LABS: BUN/Creatinine Ratio 19.2; Bilirubin, Total 0.3 mg/dL (0.2-1.0); Total Protein 6.6 g/dL (6.4-8.2)
== END | disposition home or self-care (01) ==
LOC: CHF HDHVI 13:35
PROVIDERS: ATTEND Internal Medicine Cardiovascular Disease
DX: I27.21 Secondary pulmonary arterial hypertension (principal); I11.0 Hypertensive heart disease with heart failure; I50.32 Chronic diastolic (congestive) heart failure; E11.42 Type 2 diabetes mellitus with diabetic polyneuropathy; E78.5 Hyperlipidemia, unspecified; Z79.899 Other long term (current) drug therapy
CPT/HCPCS: 36415; 80053; 83735; 85025; 96372; G0463; J3420

== ENCOUNTER → 2021-10-07 | Outpatient (CLI) | payer MEDICARE, MEDICAID ==
[2021-10-07 13:53] VITALS: BP 126/57
[2021-10-07 14:07] VITALS: BP 109/50
[2021-10-07 15:28] LABS: Albumin 3.5 g/dL (3.4-5.0); Calcium 8.6 mg/dL (8.5-10.1); Magnesium 2.8 mg/dL (1.6-2.6)
[2021-10-07 15:29] LABS: Basophils # (auto) 0.1 10 ^3/uL (0-0.2); Basophils % (auto) 0.7 % (0.0-2.0); Eosinophils # (auto) 0.1 10 ^3/uL (0-0.8); Eosinophils % (auto) 1.1 % (0.0-7.0); Hemoglobin 11.5 g/dL (12.2-16.2); Lymphocytes % (auto) 24.3 % (10.0-50.0); Mean Corpuscular Hgb Conc. 32.9 g/dL (32.0-36.0); Mean Corpuscular Volume 82.3 fL (80.0-100.0); Monocytes # (auto) 0.3 10 ^3/uL (0-1.3); Monocytes % (auto) 4.3 % (0.0-12.0); Neutrophils # (auto) 5.6 10 ^3/uL (1.6-8.6); Neutrophils % (auto) 69.6 % (37.0-80.0); Red Blood Cells 4.26 10^6/uL (4.0-5.20); Red Cell Distribution Width 16.4 % (11.8-14.3); White Blood Cell 8.1 10^3/uL (4.4-10.8)
[2021-10-07 15:31] LABS: BUN/Creatinine Ratio 21.9; Bilirubin, Total 0.2 mg/dL (0.2-1.0)
== END | disposition home or self-care (01) ==
LOC: CHF HDHVI 13:58
PROVIDERS: ATTEND Internal Medicine Cardiovascular Disease
DX: I27.21 Secondary pulmonary arterial hypertension (principal); I11.0 Hypertensive heart disease with heart failure; I50.32 Chronic diastolic (congestive) heart failure; E11.42 Type 2 diabetes mellitus with diabetic polyneuropathy; E78.5 Hyperlipidemia, unspecified; Z79.899 Other long term (current) drug therapy
CPT/HCPCS: 36415; 80053; 83735; 85025; 96372; G0463; J3420

== ENCOUNTER → 2021-11-11 | Outpatient (CLI) | payer MEDICARE, MEDICAID ==
[2021-11-11 14:51] VITALS: BP 113/83
[2021-11-11 15:04] VITALS: BP 125/60
[2021-11-11 15:27] LABS: Basophils # (auto) 0.1 10 ^3/uL (0-0.2); Basophils % (auto) 0.9 % (0.0-2.0); Eosinophils # (auto) 0.1 10 ^3/uL (0-0.8); Eosinophils % (auto) 0.5 % (0.0-7.0); Hematocrit 36.9 % (36.0-46.0); Lymphocytes % (auto) 19.9 % (10.0-50.0); Mean Corpuscular Hemoglobin 26.2 pg (28.0-32.0); Mean Corpuscular Hgb Conc. 32.6 g/dL (32.0-36.0); Mean Corpuscular Volume 80.2 fL (80.0-100.0); Monocytes # (auto) 0.5 10 ^3/uL (0-1.3); Monocytes % (auto) 4.9 % (0.0-12.0); Neutrophils # (auto) 7.3 10 ^3/uL (1.6-8.6); Neutrophils % (auto) 73.8 % (37.0-80.0); Red Cell Distribution Width 16.1 % (11.8-14.3); White Blood Cell 9.8 10^3/uL (4.4-10.8)
[2021-11-11 16:13] LABS: BUN/Creatinine Ratio 24.8; Potassium 3.4 mmol/L (3.5-5.1)
[2021-11-11 16:14] LABS: Albumin 3.8 g/dL (3.4-5.0); Bilirubin, Total 0.3 mg/dL (0.2-1.0); Calcium 8.7 mg/dL (8.5-10.1); Total Protein 7.2 g/dL (6.4-8.2)
== END | disposition home or self-care (01) ==
LOC: CHF HDHVI 14:50
PROVIDERS: ATTEND Internal Medicine Cardiovascular Disease
DX: I27.21 Secondary pulmonary arterial hypertension (principal); I11.0 Hypertensive heart disease with heart failure; I50.32 Chronic diastolic (congestive) heart failure; E11.42 Type 2 diabetes mellitus with diabetic polyneuropathy; E78.5 Hyperlipidemia, unspecified; Z79.899 Other long term (current) drug therapy
CPT/HCPCS: 36415; 80053; 82306; 82607; 83036; 83735; 85025; 96372; G0463; J3420

== ENCOUNTER → 2021-12-16 | Outpatient (CLI) | payer MEDICARE, MEDICAID ==
[2021-12-16 14:24] VITALS: BP 101/56
[2021-12-16 15:00] VITALS: BP 134/62
[2021-12-16 15:37] LABS: Basophils # (auto) 0.1 10 ^3/uL (0-0.2); Eosinophils # (auto) 0.1 10 ^3/uL (0-0.8); Hemoglobin 11.3 g/dL (12.2-16.2); Lymphocytes # (auto) 1.5 10 ^3/uL (0.4-5.4); Mean Corpuscular Volume 80.1 fL (80.0-100.0); Monocytes # (auto) 0.3 10 ^3/uL (0-1.3); Nucleated Red Blood Cells % 0.1 %
[2021-12-16 15:39] LABS: Basophils % (auto) 0.9 % (0.0-2.0); Eosinophils % (auto) 0.9 % (0.0-7.0); Hematocrit 34.6 % (36.0-46.0); Lymphocytes % (auto) 20.8 % (10.0-50.0); Mean Corpuscular Hemoglobin 26.2 pg (28.0-32.0); Mean Corpuscular Hgb Conc. 32.7 g/dL (32.0-36.0); Monocytes % (auto) 4.2 % (0.0-12.0); Neutrophils # (auto) 5.2 10 ^3/uL (1.6-8.6); Neutrophils % (auto) 73.2 % (37.0-80.0); Red Blood Cells 4.32 10^6/uL (4.0-5.20); Red Cell Distribution Width 16.4 % (11.8-14.3); White Blood Cell 7.2 10^3/uL (4.4-10.8)
[2021-12-16 15:47] LABS: Albumin 3.5 g/dL (3.4-5.0); Calcium 8.6 mg/dL (8.5-10.1); Magnesium 2.4 mg/dL (1.6-2.6)
[2021-12-16 15:51] LABS: BUN/Creatinine Ratio 16.7; Bilirubin, Total 0.3 mg/dL (0.2-1.0); Total Protein 6.8 g/dL (6.4-8.2)
== END | disposition home or self-care (01) ==
LOC: CHF HDHVI 14:25
PROVIDERS: ATTEND Internal Medicine Cardiovascular Disease
DX: I27.21 Secondary pulmonary arterial hypertension (principal); I11.0 Hypertensive heart disease with heart failure; I50.32 Chronic diastolic (congestive) heart failure; E11.42 Type 2 diabetes mellitus with diabetic polyneuropathy; E78.5 Hyperlipidemia, unspecified; Z79.899 Other long term (current) drug therapy
CPT/HCPCS: 36415; 80053; 83735; 85025; 94618; 96372; G0463; J3420

== ENCOUNTER → 2022-02-18 | Outpatient (CLI) | payer MEDICARE, MEDICAID ==
[2022-02-18 14:06] VITALS: BP 127/61
[2022-02-18 14:30] VITALS: BP 140/82
[2022-02-18 16:04] LABS: Basophils # (auto) 0.1 10 ^3/uL (0-0.2); Eosinophils # (auto) 0 10 ^3/uL (0-0.8); Eosinophils % (auto) 0.3 % (0.0-7.0); Mean Corpuscular Volume 79.3 fL (80.0-100.0); Monocytes # (auto) 0.4 10 ^3/uL (0-1.3); Red Cell Distribution Width 16.6 % (11.8-14.3); White Blood Cell 12.8 10^3/uL (4.4-10.8)
[2022-02-18 16:06] LABS: Basophils % (auto) 0.6 % (0.0-2.0); Hematocrit 36.1 % (36.0-46.0); Hemoglobin 11.9 g/dL (12.2-16.2); Lymphocytes # (auto) 1.4 10 ^3/uL (0.4-5.4); Lymphocytes % (auto) 10.6 % (10.0-50.0); Mean Corpuscular Hemoglobin 26.1 pg (28.0-32.0); Mean Corpuscular Hgb Conc. 32.9 g/dL (32.0-36.0); Monocytes % (auto) 3.3 % (0.0-12.0); Neutrophils # (auto) 10.9 10 ^3/uL (1.6-8.6); Neutrophils % (auto) 85.2 % (37.0-80.0); Red Blood Cells 4.55 10^6/uL (4.0-5.20)
[2022-02-18 16:11] LABS: Albumin 3.3 g/dL (3.4-5.0); BUN/Creatinine Ratio 17.1; Calcium 8.8 mg/dL (8.5-10.1); Magnesium 1.9 mg/dL (1.6-2.6); Potassium 4.2 mmol/L (3.5-5.1)
[2022-02-18 16:13] LABS: Bilirubin, Total 0.4 mg/dL (0.2-1.0); Total Protein 6.7 g/dL (6.4-8.2)
== END | disposition home or self-care (01) ==
LOC: CHF HDHVI 14:04
PROVIDERS: ATTEND Internal Medicine Cardiovascular Disease
DX: I27.0 Primary pulmonary hypertension (principal); I10 Essential (primary) hypertension
CPT/HCPCS: 36415; 80053; 83735; 85025; 96372; G0463; J3420

== ENCOUNTER → 2022-03-03 | Outpatient (CLI) | payer MEDICARE, MEDICAID ==
[~2022-03-03] MED LIST changes: -CYANOCOBALAMIN (B-12) 1000 MCG/1 ML VIAL IM ONE; -CYANOCOBALAMIN (B-12) 1000 MCG/1 ML VIAL ONE
== END | disposition home or self-care (01) ==
LOC: Rad HDHVI 14:12
PROVIDERS: ATTEND Internal Medicine Cardiovascular Disease
DX: R00.0 Tachycardia, unspecified (principal); R06.02 Shortness of breath
CPT/HCPCS: 93306

== ENCOUNTER → 2022-04-02 | Outpatient (CLI) | payer MEDICARE, MEDICAID ==
[~2022-04-02] MED LIST changes: +IOHEXOL 350 MG/ML 100ML IJ ONE
[2022-04-02 10:15] VITALS: BP 109/65
[2022-04-02 10:55] VITALS: BP 115/61
== END | disposition home or self-care (01) ==
LOC: Rad HDHVI 10:13
PROVIDERS: ATTEND Internal Medicine Cardiovascular Disease
DX: J18.8 Other pneumonia, unspecified organism (principal); J64 Unspecified pneumoconiosis; R07.89 Other chest pain; R06.02 Shortness of breath
CPT/HCPCS: 71275; G0463; Q9967

== ENCOUNTER → 2022-04-30 | Outpatient (CLI) | payer MEDICARE, MEDICAID ==
[~2022-04-30] VITALS: Ht 160 cm; Wt 83.0 kg
[~2022-04-30] MED LIST changes: +ADENOSINE 70 MG in GIVE UN-DILUTED 0 ML IV ONE; +ADENOSINE 90 MG/30 ML INJ IV ONE; -IOHEXOL 350 MG/ML 100ML IJ ONE
== END | disposition home or self-care (01) ==
LOC: Rad HDHVI 13:12
PROVIDERS: ATTEND Internal Medicine Cardiovascular Disease
DX: R06.02 Shortness of breath (principal); R00.2 Palpitations; E78.5 Hyperlipidemia, unspecified; E11.9 Type 2 diabetes mellitus without complications; R07.9 Chest pain, unspecified; J44.9 Chronic obstructive pulmonary disease, unspecified; I27.21 Secondary pulmonary arterial hypertension; F17.210 Nicotine dependence, cigarettes, uncomplicated; Z82.49 Family history of ischemic heart disease and other diseases of the circulatory system
CPT/HCPCS: 78452; 93005; 96374; 96375; A9500; J0153

== ENCOUNTER → 2022-06-16 | Outpatient (CLI) | payer MEDICARE, MEDICAID ==
[~2022-06-16] MED LIST changes: -ADENOSINE 70 MG in GIVE UN-DILUTED 0 ML IV ONE; -ADENOSINE 90 MG/30 ML INJ IV ONE; +CYANOCOBALAMIN (B-12) 1000 MCG/1 ML VIAL IM ONE; +CYANOCOBALAMIN (B-12) 1000 MCG/1 ML VIAL ONE
[2022-06-16 13:02] VITALS: BP 94/57
[2022-06-16 13:27] VITALS: BP 102/53
[2022-06-16 14:58] LABS: Basophils # (auto) 0 10 ^3/uL (0-0.2); Basophils % (auto) 0.7 % (0.0-2.0); Eosinophils # (auto) 0.1 10 ^3/uL (0-0.8); Eosinophils % (auto) 1.1 % (0.0-7.0); Hematocrit 35.5 % (36.0-46.0); Hemoglobin 11.2 g/dL (12.2-16.2); Lymphocytes # (auto) 1.5 10 ^3/uL (0.4-5.4); Lymphocytes % (auto) 27.1 % (10.0-50.0); Mean Corpuscular Hemoglobin 25.2 pg (28.0-32.0); Mean Corpuscular Hgb Conc. 31.5 g/dL (32.0-36.0); Monocytes # (auto) 0.3 10 ^3/uL (0-1.3); Neutrophils # (auto) 3.7 10 ^3/uL (1.6-8.6); Neutrophils % (auto) 66.1 % (37.0-80.0); Nucleated Red Blood Cells % 0.1 %; Red Blood Cells 4.44 10^6/uL (4.0-5.20); Red Cell Distribution Width 16.2 % (11.8-14.3); White Blood Cell 5.7 10^3/uL (4.4-10.8)
[2022-06-16 15:08] LABS: Albumin 3.5 g/dL (3.4-5.0); Calcium 8.5 mg/dL (8.5-10.1); Potassium 3.9 mmol/L (3.5-5.1)
[2022-06-16 15:13] LABS: BUN/Creatinine Ratio 16.7; Bilirubin, Total 0.4 mg/dL (0.2-1.0); Total Protein 6.9 g/dL (6.4-8.2)
== END | disposition home or self-care (01) ==
LOC: CHF HDHVI 12:51
PROVIDERS: ATTEND Internal Medicine Cardiovascular Disease
DX: I27.21 Secondary pulmonary arterial hypertension (principal); E78.5 Hyperlipidemia, unspecified; E11.9 Type 2 diabetes mellitus without complications; J44.9 Chronic obstructive pulmonary disease, unspecified; F17.210 Nicotine dependence, cigarettes, uncomplicated
CPT/HCPCS: 36415; 80053; 80061; 83735; 85025; 96372; G0463; J3420

== ENCOUNTER → 2022-08-03 | Outpatient (CLI) | payer MEDICARE, MEDICAID ==
[~2022-08-03] VITALS: Ht 160 cm; Wt 82.8 kg
[~2022-08-03] MED LIST changes: -CYANOCOBALAMIN (B-12) 1000 MCG/1 ML VIAL IM ONE; -CYANOCOBALAMIN (B-12) 1000 MCG/1 ML VIAL ONE; +MAGNESIUM SULFATE 1GM/100ML 100 ML IV ONE; +POTASSIUM CHL 20 Meq TABLET PO ONE
[2022-08-03 13:54] VITALS: BP 106/59
[2022-08-03 15:10] VITALS: BP 119/54
== END | disposition home or self-care (01) ==
LOC: CHF HDHVI 13:49
PROVIDERS: ATTEND Internal Medicine Cardiovascular Disease
DX: E83.42 Hypomagnesemia (principal); I27.21 Secondary pulmonary arterial hypertension; J44.9 Chronic obstructive pulmonary disease, unspecified; E78.5 Hyperlipidemia, unspecified; E11.9 Type 2 diabetes mellitus without complications; F17.210 Nicotine dependence, cigarettes, uncomplicated
CPT/HCPCS: 96365; G0463; J3475

== ENCOUNTER → 2022-09-01 | Outpatient (CLI) | payer MEDICARE, MEDICAID ==
[~2022-09-01] MED LIST changes: +CYANOCOBALAMIN (B-12) 1000 MCG/1 ML VIAL IM ONE; +CYANOCOBALAMIN (B-12) 1000 MCG/1 ML VIAL ONE; -MAGNESIUM SULFATE 1GM/100ML 100 ML IV ONE; -POTASSIUM CHL 20 Meq TABLET PO ONE
[2022-09-01 14:33] VITALS: BP 112/53
[2022-09-01 15:02] VITALS: BP 125/65
[2022-09-01 16:22] LABS: Basophils # (auto) 0.1 10 ^3/uL (0-0.2); Basophils % (auto) 0.8 % (0.0-2.0); Eosinophils # (auto) 0 10 ^3/uL (0-0.8); Eosinophils % (auto) 0.2 % (0.0-7.0); Hematocrit 33.3 % (36.0-46.0); Hemoglobin 10.6 g/dL (12.2-16.2); Lymphocytes # (auto) 1.7 10 ^3/uL (0.4-5.4); Mean Corpuscular Hemoglobin 24.9 pg (28.0-32.0); Mean Corpuscular Hgb Conc. 31.9 g/dL (32.0-36.0); Mean Corpuscular Volume 78.1 fL (80.0-100.0); Monocytes # (auto) 0.4 10 ^3/uL (0-1.3); Neutrophils # (auto) 8.9 10 ^3/uL (1.6-8.6); Red Blood Cells 4.26 10^6/uL (4.0-5.20); Red Cell Distribution Width 16.8 % (11.8-14.3); White Blood Cell 11.1 10^3/uL (4.4-10.8)
[2022-09-01 16:34] LABS: Albumin 3.3 g/dL (3.4-5.0); BUN/Creatinine Ratio 21.6; Calcium 8.4 mg/dL (8.5-10.1); Magnesium 1.5 mg/dL (1.6-2.6); Potassium 3.9 mmol/L (3.5-5.1)
[2022-09-01 16:36] LABS: Bilirubin, Total 0.3 mg/dL (0.2-1.0); Total Protein 6.3 g/dL (6.4-8.2)
== END | disposition home or self-care (01) ==
LOC: CHF HDHVI 14:30
PROVIDERS: ATTEND Internal Medicine Cardiovascular Disease
DX: E11.9 Type 2 diabetes mellitus without complications (principal)
CPT/HCPCS: 36415; 80053; 83036; 83735; 85025; 96372; G0463

== ENCOUNTER → 2022-09-08 | Outpatient (CLI) | payer MEDICARE, MEDICAID ==
[~2022-09-08] MED LIST changes: -CYANOCOBALAMIN (B-12) 1000 MCG/1 ML VIAL IM ONE; -CYANOCOBALAMIN (B-12) 1000 MCG/1 ML VIAL ONE; +MAGNESIUM SULFATE 1GM/100ML 100 ML IV ONE
[2022-09-08 10:44] VITALS: BP 112/54
[2022-09-08 12:02] LABS: BUN/Creatinine Ratio 21.6; Calcium 8.3 mg/dL (8.5-10.1); Magnesium 1.6 mg/dL (1.6-2.6); Potassium 3.9 mmol/L (3.5-5.1)
[2022-09-08 13:12] VITALS: BP 111/65
[2022-09-08] MEDS: MAGNESIUM SULFATE 1GM/100ML 100 ML IV SCH ×2 (13:43→15:05)
== END | disposition home or self-care (01) ==
LOC: CHF HDHVI 10:42
PROVIDERS: ATTEND Internal Medicine Cardiovascular Disease
DX: E83.42 Hypomagnesemia (principal)
CPT/HCPCS: 36415; 80048; 83735; 96365; 96366; G0463

== ENCOUNTER → 2022-09-11 | Outpatient (CLI) | payer MEDICARE, MEDICAID ==
[~2022-09-11] MED LIST changes: -MAGNESIUM SULFATE 1GM/100ML 100 ML IV ONE
== END | disposition home or self-care (01) ==
LOC: Rad HDHVI 13:06
PROVIDERS: ATTEND Internal Medicine Cardiovascular Disease
DX: I27.21 Secondary pulmonary arterial hypertension (principal); R00.2 Palpitations; R06.02 Shortness of breath
CPT/HCPCS: 93306

== ENCOUNTER → 2022-09-30 | Outpatient (CLI) | payer MEDICARE, MEDICAID ==
[~2022-09-30] VITALS: Ht 165.1 cm; Wt 89.5 kg
[~2022-09-30] MED LIST changes: +CYANOCOBALAMIN (B-12) 1000 MCG/1 ML VIAL IM ONE; +CYANOCOBALAMIN (B-12) 1000 MCG/1 ML VIAL ONE
[2022-09-30 14:47] VITALS: BP 116/60
[2022-09-30 15:20] VITALS: BP 124/54
[2022-09-30 16:42] LABS: Basophils # (auto) 0 10 ^3/uL (0-0.2); Basophils % (auto) 0.6 % (0.0-2.0); Eosinophils # (auto) 0 10 ^3/uL (0-0.8); Hemoglobin 10.4 g/dL (12.2-16.2); Lymphocytes # (auto) 1.7 10 ^3/uL (0.4-5.4); Monocytes # (auto) 0.3 10 ^3/uL (0-1.3); Neutrophils # (auto) 5.2 10 ^3/uL (1.6-8.6)
[2022-09-30 16:44] LABS: Eosinophils % (auto) 0.4 % (0.0-7.0); Hematocrit 31.9 % (36.0-46.0); Lymphocytes % (auto) 23.7 % (10.0-50.0); Mean Corpuscular Hemoglobin 25.5 pg (28.0-32.0); Mean Corpuscular Hgb Conc. 32.6 g/dL (32.0-36.0); Mean Corpuscular Volume 78.2 fL (80.0-100.0); Monocytes % (auto) 3.8 % (0.0-12.0); Neutrophils % (auto) 71.5 % (37.0-80.0); Red Blood Cells 4.08 10^6/uL (4.0-5.20); Red Cell Distribution Width 17.1 % (11.8-14.3); White Blood Cell 7.2 10^3/uL (4.4-10.8)
[2022-09-30 16:50] LABS: Potassium 4.1 mmol/L (3.5-5.1)
[2022-09-30 16:58] LABS: Albumin 3.5 g/dL (3.4-5.0); Bilirubin, Total 0.3 mg/dL (0.2-1.0); Calcium 8.7 mg/dL (8.5-10.1); Magnesium 1.8 mg/dL (1.6-2.6); Total Protein 6.2 g/dL (6.4-8.2)
== END | disposition home or self-care (01) ==
LOC: CHF HDHVI 14:44
PROVIDERS: ATTEND Internal Medicine Cardiovascular Disease
DX: I27.21 Secondary pulmonary arterial hypertension (principal); D64.9 Anemia, unspecified; E11.9 Type 2 diabetes mellitus without complications; E83.42 Hypomagnesemia
CPT/HCPCS: 36415; 80053; 83735; 85025; 94618; 96372; G0463; J3420

== ENCOUNTER → 2022-11-04 | Outpatient (CLI) | payer MEDICARE, MEDICAID ==
[2022-11-04 14:45] VITALS: BP 106/54
[2022-11-04 15:09] VITALS: BP 129/61
[2022-11-04 16:58] LABS: Basophils # (auto) 0.1 10 ^3/uL (0-0.2); Basophils % (auto) 0.8 % (0.0-2.0); Eosinophils # (auto) 0.1 10 ^3/uL (0-0.8); Eosinophils % (auto) 0.9 % (0.0-7.0); Hematocrit 33.8 % (36.0-46.0); Hemoglobin 10.8 g/dL (12.2-16.2); Lymphocytes # (auto) 1.7 10 ^3/uL (0.4-5.4); Lymphocytes % (auto) 26.5 % (10.0-50.0); Mean Corpuscular Hgb Conc. 31.9 g/dL (32.0-36.0); Mean Corpuscular Volume 78.6 fL (80.0-100.0); Monocytes # (auto) 0.2 10 ^3/uL (0-1.3); Monocytes % (auto) 3.4 % (0.0-12.0); Neutrophils # (auto) 4.3 10 ^3/uL (1.6-8.6); Neutrophils % (auto) 68.4 % (37.0-80.0); Nucleated Red Blood Cells % 0.2 %; Red Blood Cells 4.31 10^6/uL (4.0-5.20); White Blood Cell 6.4 10^3/uL (4.4-10.8)
[2022-11-04 17:08] LABS: Albumin 3.4 g/dL (3.4-5.0); Calcium 8.7 mg/dL (8.5-10.1); Magnesium 2.1 mg/dL (1.6-2.6)
[2022-11-04 17:10] LABS: BUN/Creatinine Ratio 15.7
[2022-11-04 17:13] LABS: Bilirubin, Total 0.3 mg/dL (0.2-1.0); Total Protein 6.8 g/dL (6.4-8.2)
== END | disposition home or self-care (01) ==
LOC: CHF HDHVI 14:42
PROVIDERS: ATTEND Internal Medicine Cardiovascular Disease
DX: I27.21 Secondary pulmonary arterial hypertension (principal); R53.82 Chronic fatigue, unspecified; R53.83 Other fatigue; E83.42 Hypomagnesemia; D64.9 Anemia, unspecified; I10 Essential (primary) hypertension
CPT/HCPCS: 36415; 80053; 83735; 85025; 96372; G0463; J3420

== ENCOUNTER → 2022-12-17 | Outpatient (CLI) | payer MEDICARE, MEDICAID ==
[2022-12-17 14:32] VITALS: BP 116/63
[2022-12-17 15:05] VITALS: BP 114/60
== END | disposition home or self-care (01) ==
LOC: CHF HDHVI 14:29
PROVIDERS: ATTEND Internal Medicine Cardiovascular Disease
DX: I27.21 Secondary pulmonary arterial hypertension (principal); R53.83 Other fatigue; I10 Essential (primary) hypertension; E83.42 Hypomagnesemia
CPT/HCPCS: 96372; G0463; J3420

== ENCOUNTER → 2023-02-09 | Outpatient (CLI) | payer MEDICARE, MEDICAID ==
[~2023-02-09] MED LIST changes: +FUROSEMIDE 40 MG/4 ML VIAL IV ONE; +FUROSEMIDE 40 MG/4 ML VIAL ONE; +MAGNESIUM SULFATE 1GM/100ML 200 ML IV ONE; +POTASSIUM CHL 10 Meq TABLET PO ONE; +POTASSIUM CHL 20 Meq TABLET PO ONE
[2023-02-09 13:28] VITALS: BP 136/50
[2023-02-09] MEDS: MAGNESIUM SULFATE 1GM/100ML 100 ML IV SCH ×2 (13:36→14:36)
== END | disposition home or self-care (01) ==
LOC: CHF HDHVI 13:17
PROVIDERS: ATTEND Internal Medicine Cardiovascular Disease
DX: M79.672 Pain in left foot (principal); E83.42 Hypomagnesemia; I10 Essential (primary) hypertension; I27.21 Secondary pulmonary arterial hypertension
CPT/HCPCS: 73630; 96365; 96366; 96372; 96375; G0463; J1940; J3420; J3475

== ENCOUNTER → 2023-05-05 | Outpatient (CLI) | payer MEDICARE, MEDICAID ==
[~2023-05-05] MED LIST changes: -ALEN70TA2 PO; +ALEN70TA21 PO; -CYANOCOBALAMIN (B-12) 1000 MCG/1 ML VIAL IM ONE; -CYANOCOBALAMIN (B-12) 1000 MCG/1 ML VIAL ONE; -FUROSEMIDE 40 MG/4 ML VIAL IV ONE; -FUROSEMIDE 40 MG/4 ML VIAL ONE; -MAGNESIUM SULFATE 1GM/100ML 200 ML IV ONE; -POTA8TAB2 PO; +POTA8TAB38 PO; -POTASSIUM CHL 10 Meq TABLET PO ONE; -POTASSIUM CHL 20 Meq TABLET PO ONE
[2023-05-05 13:31] LABS: Basophils # (auto) 0.1 10 ^3/uL (0-0.2); Eosinophils # (auto) 0.1 10 ^3/uL (0-0.8); Monocytes # (auto) 0.4 10 ^3/uL (0-1.3); White Blood Cell 9.4 10^3/uL (4.4-10.8)
[2023-05-05 13:35] LABS: Basophils % (auto) 0.6 % (0.0-2.0); Eosinophils % (auto) 0.8 % (0.0-7.0); Hemoglobin 10.6 g/dL (12.2-16.2); Lymphocytes % (auto) 21.4 % (10.0-50.0); Mean Corpuscular Hemoglobin 24.2 pg (28.0-32.0); Mean Corpuscular Hgb Conc. 32.3 g/dL (32.0-36.0); Mean Corpuscular Volume 75.1 fL (80.0-100.0); Monocytes % (auto) 4.7 % (0.0-12.0); Neutrophils # (auto) 6.8 10 ^3/uL (1.6-8.6); Neutrophils % (auto) 72.5 % (37.0-80.0); Red Blood Cells 4.39 10^6/uL (4.0-5.20); Red Cell Distribution Width 16.8 % (11.8-14.3)
[2023-05-05 13:54] LABS: Albumin 3.3 g/dL (3.4-5.0); Calcium 8.5 mg/dL (8.5-10.1); Magnesium 1.8 mg/dL (1.6-2.6); Potassium 3.8 mmol/L (3.5-5.1)
[2023-05-05 14:08] LABS: BUN/Creatinine Ratio 8.9 (10.0-20.0); Bilirubin, Total 0.3 mg/dL (0.2-1.0); Total Protein 6.8 g/dL (6.4-8.2)
== END | disposition home or self-care (01) ==
LOC: LAB 13:05
PROVIDERS: ATTEND Internal Medicine Cardiovascular Disease
DX: I10 Essential (primary) hypertension (principal)
CPT/HCPCS: 36415; 80053; 83735; 85025

== ENCOUNTER → 2023-06-10 | Outpatient (CLI) | payer MEDICARE, MEDICAID ==
[~2023-06-10] MED LIST changes: +CYANOCOBALAMIN (B-12) 1000 MCG/1 ML VIAL IM ONE; +CYANOCOBALAMIN (B-12) 1000 MCG/1 ML VIAL ONE; +MAGNESIUM SULFATE 1GM/100ML 100 ML IV ONE; +MAGNESIUM SULFATE 1GM/100ML 200 ML IV ONE
[2023-06-10 14:08] VITALS: BP 116/46; PULSE 94; RESP 20; O2SAT 94
[2023-06-10 16:28] VITALS: BP 121/65; PULSE 75; RESP 20; O2SAT 96
== END | disposition home or self-care (01) ==
LOC: CHF HDHVI 13:51
PROVIDERS: ATTEND Internal Medicine Cardiovascular Disease
DX: E83.42 Hypomagnesemia (principal); I27.21 Secondary pulmonary arterial hypertension; D64.9 Anemia, unspecified; I10 Essential (primary) hypertension
CPT/HCPCS: 96365; 96366; 96372; G0463; J3420; J3475

== ENCOUNTER → 2023-07-15 | Outpatient (CLI) | payer MEDICARE, MEDICAID ==
[~2023-07-15] MED LIST changes: -MAGNESIUM SULFATE 1GM/100ML 100 ML IV ONE; -MAGNESIUM SULFATE 1GM/100ML 200 ML IV ONE
[2023-07-15 14:15] VITALS: BP 123/62; PULSE 97; RESP 18; O2SAT 94
[2023-07-15 14:43] VITALS: BP 111/61; PULSE 99; RESP 18; O2SAT 94
== END | disposition home or self-care (01) ==
LOC: CHF HDHVI 14:13
PROVIDERS: ATTEND Internal Medicine Cardiovascular Disease
DX: I27.21 Secondary pulmonary arterial hypertension (principal); D64.9 Anemia, unspecified; I10 Essential (primary) hypertension
CPT/HCPCS: 96372; G0463; J3420

== ENCOUNTER → 2023-09-15 | Outpatient (CLI) | payer MEDICARE, MEDICAID ==
[2023-09-15 14:53] VITALS: BP 125/66; PULSE 106; RESP 18; O2SAT 94
[2023-09-15 15:25] VITALS: BP 130/60; PULSE 104; RESP 18; O2SAT 94
== END | disposition home or self-care (01) ==
LOC: CHF HDHVI 14:44
PROVIDERS: ATTEND Internal Medicine Cardiovascular Disease
DX: I27.21 Secondary pulmonary arterial hypertension (principal); I10 Essential (primary) hypertension; D64.9 Anemia, unspecified; R06.02 Shortness of breath
CPT/HCPCS: 93005; 96372; G0463; J3420

== ENCOUNTER → 2023-10-13 | Outpatient (CLI) | payer MEDICARE, MEDICAID ==
[~2023-10-13] VITALS: Ht 30.5 cm; Wt 80.7 kg
[~2023-10-13] MED LIST changes: +MAGNESIUM SULFATE 1GM/100ML 100 ML IV ONE; +MAGNESIUM SULFATE 1GM/100ML 200 ML IV ONE
[2023-10-13 14:27] VITALS: BP 127/67; PULSE 116; RESP 18; O2SAT 96
[2023-10-13 16:49] VITALS: BP 125/59; PULSE 94; RESP 18; O2SAT 96
== END | disposition home or self-care (01) ==
LOC: CHF HDHVI 14:13
PROVIDERS: ATTEND Internal Medicine Cardiovascular Disease
DX: E83.42 Hypomagnesemia (principal); D64.9 Anemia, unspecified; I27.21 Secondary pulmonary arterial hypertension; I10 Essential (primary) hypertension
CPT/HCPCS: 96365; 96366; 96372; G0463; J3420; J3475

== ENCOUNTER → 2023-10-27 | Outpatient (CLI) | payer MEDICARE, MEDICAID ==
[~2023-10-27] MED LIST changes: +BUMETANIDE 2.5mg/10ml (0.25 mg/ml) INJ IV ONE; +BUMETANIDE INJECTION 10 ML ONE; -CYANOCOBALAMIN (B-12) 1000 MCG/1 ML VIAL IM ONE; -CYANOCOBALAMIN (B-12) 1000 MCG/1 ML VIAL ONE; -MAGNESIUM SULFATE 1GM/100ML 100 ML IV ONE; -MAGNESIUM SULFATE 1GM/100ML 200 ML IV ONE; +POTASSIUM CHL 10 Meq TABLET PO ONE; +POTASSIUM CHL 20 Meq TABLET PO ONE
[2023-10-27 14:33] VITALS: BP 118/66; PULSE 93; RESP 18; O2SAT 98
[2023-10-27 15:16] VITALS: BP 128/62; PULSE 92; RESP 18; O2SAT 98
== END | disposition home or self-care (01) ==
LOC: CHF HDHVI 14:34
PROVIDERS: ATTEND Internal Medicine Cardiovascular Disease
DX: R60.0 Localized edema (principal); I10 Essential (primary) hypertension; I27.21 Secondary pulmonary arterial hypertension
CPT/HCPCS: 96374; G0463

== ENCOUNTER → 2023-11-05 | Outpatient (CLI) | payer MEDICARE, MEDICAID ==
[~2023-11-05] MED LIST changes: -BUMETANIDE 2.5mg/10ml (0.25 mg/ml) INJ IV ONE; -BUMETANIDE INJECTION 10 ML ONE; -POTASSIUM CHL 10 Meq TABLET PO ONE; -POTASSIUM CHL 20 Meq TABLET PO ONE
== END | disposition home or self-care (01) ==
LOC: Rad HDHVI 14:12
PROVIDERS: ATTEND Internal Medicine Cardiovascular Disease
DX: R06.02 Shortness of breath (principal); R00.2 Palpitations
CPT/HCPCS: 93306

== ENCOUNTER → 2024-04-19 | Outpatient (CLI) | payer MEDICARE, MEDICAID ==
[2024-04-19 14:40] VITALS: BP 128/64; PULSE 68; RESP 16; O2SAT 94
[2024-04-19] MEDS: CYANOCOBALAMIN (B-12) 1000 MCG/1 ML VIAL IM ONE (14:40)
[2024-04-19] MEDS: CYANOCOBALAMIN (B-12) 1000 MCG/1 ML VIAL ONE (14:54)
[2024-04-19 15:15] VITALS: BP 136/65; PULSE 79; RESP 18; O2SAT 94
== END | disposition home or self-care (01) ==
LOC: CHF HDHVI 14:36
PROVIDERS: ATTEND Internal Medicine Cardiovascular Disease
DX: D64.9 Anemia, unspecified (principal); I27.0 Primary pulmonary hypertension
CPT/HCPCS: 96372; G0463; J3420

== ENCOUNTER → 2024-07-04 | Outpatient (CLI) | payer MEDICARE, MEDICAID ==
[2024-07-04 12:35] VITALS: BP 137/61; PULSE 82; RESP 16; O2SAT 93
[2024-07-04] MEDS: CYANOCOBALAMIN (B-12) 1000 MCG/1 ML VIAL IM ONE (12:35)
[2024-07-04] MEDS: CYANOCOBALAMIN (B-12) 1000 MCG/1 ML VIAL ONE (12:36)
[2024-07-04 12:58] VITALS: BP 117/68; PULSE 84; RESP 16; O2SAT 93
== END | disposition home or self-care (01) ==
LOC: CHF HDHVI 12:24
PROVIDERS: ATTEND Internal Medicine Cardiovascular Disease
DX: I27.21 Secondary pulmonary arterial hypertension (principal); D64.9 Anemia, unspecified
CPT/HCPCS: 96372; G0463; J3420

== ENCOUNTER → 2024-08-09 | Outpatient (CLI) | payer MEDICARE, MEDICAID ==
[2024-08-09] MEDS: CYANOCOBALAMIN (B-12) 1000 MCG/1 ML VIAL IM ONE (15:10)
[2024-08-09 15:11] VITALS: BP 131/67; PULSE 90; RESP 18; O2SAT 97
[2024-08-09 15:44] VITALS: BP 129/67; PULSE 91; RESP 18; O2SAT 97
[2024-08-09] MEDS: CYANOCOBALAMIN (B-12) 1000 MCG/1 ML VIAL ONE (15:49)
== END | disposition home or self-care (01) ==
LOC: CHF HDHVI 15:06
PROVIDERS: ATTEND Internal Medicine Cardiovascular Disease
DX: I27.0 Primary pulmonary hypertension (principal); D64.9 Anemia, unspecified; Z79.899 Other long term (current) drug therapy
CPT/HCPCS: 94618; 96372; G0463; J3420

== ENCOUNTER → 2024-10-25 | Outpatient (CLI) | payer MEDICARE, MEDICAID ==
[2024-10-25 15:18] VITALS: BP 117/73; PULSE 84; RESP 18; O2SAT 98
[2024-10-25 15:35] VITALS: BP_SYST 146; BP_DIAS 70; BP_DIAS 76; PULSE 78; RESP 18; O2SAT 98
[2024-10-25] MEDS: CYANOCOBALAMIN (B-12) 1000 MCG/1 ML VIAL ONE (15:38)
[2024-10-25] MEDS: CYANOCOBALAMIN (B-12) 1000 MCG/1 ML VIAL IM ONE (15:39)
== END | disposition home or self-care (01) ==
LOC: CHF HDHVI 15:15
PROVIDERS: ATTEND Internal Medicine Cardiovascular Disease
DX: D64.9 Anemia, unspecified (principal); I27.0 Primary pulmonary hypertension; R06.02 Shortness of breath
CPT/HCPCS: 96372; G0463; J3420

== ENCOUNTER → 2024-11-29 | Outpatient (CLI) | payer MEDICARE, MEDICAID ==
[~2024-11-29] VITALS: Ht 33 cm; Wt 0.5 kg
[2024-11-29] MEDS: CYANOCOBALAMIN (B-12) 1000 MCG/1 ML VIAL ONE (14:21)
[2024-11-29 14:33] VITALS: BP 125/66; PULSE 85; RESP 16; O2SAT 96
[2024-11-29 15:15] VITALS: BP 122/64; PULSE 87; RESP 16; O2SAT 96
[2024-11-29] MEDS: CYANOCOBALAMIN (B-12) 1000 MCG/1 ML VIAL IM ONE (15:42)
== END | disposition home or self-care (01) ==
LOC: CHF HDHVI 15:10
PROVIDERS: ATTEND Internal Medicine Cardiovascular Disease
DX: I27.0 Primary pulmonary hypertension (principal); D64.9 Anemia, unspecified
CPT/HCPCS: 96372; G0463; J3420